=== PATIENT | female | born 1975 | race Caucasian/White ===

== ENCOUNTER 2023-09-24 14:27 | Emergency (ER) | payer MEDICAID, SELFPAY ==
[2023-09-24 15:18] VITALS: BP 143/89; PULSE 88; RESP 16; TEMP 36.7; O2SAT 98; BMI 33.3
[2023-09-24 17:00] VITALS: PULSE 72
[2023-09-24 17:47] LABS: Basophils % 0.6 %; Eosinophils # 0.2 10^3/uL (0.0-0.8); Eosinophils % 3.1 %; Hematocrit 37.9 % (36-47); Lymphocytes # 1.9 10^3/uL (0.8-4.8); Lymphocytes % 28.9 %; Mean Corpuscular HGB Conc 32.7 g/dL (30-55); Mean Corpuscular Hemoglobin 30.8 pg (27-33); Mean Platelet Volume 11.3 fL (7.4-10.4); Monocytes # 0.6 10^3/uL (0.2-0.9); Monocytes % 8.2 %; Neutrophils # 3.92 10^3/uL (1.8-7.7); Neutrophils % 58.9 %; Nucleated Red Blood Cells % 0 %; Platelet Count 257 10^3/cmm (157-399); Red Blood Count 4.03 10^6/uL (3.85-5.65); White Blood Count 6.67 10^3/uL (3.29-11.43)
--- NOTE | 2023-09-24 17:53 | W.ED.EXTPRO ---
HPI - Extremity Problem General: Chief complaint: Extremity Injury, Lower Stated complaint: reported pain and swelling in feet and legs Time Seen by Provider: 09/24/23 16:50 History of Present Illness: Aure is a 48-year-old female that presents to the emergency department with complaints of bilateral lower extremity swelling and redness. Onset of symptoms approximately 1 week ago and 1 week after starting a new job in which she stands for 8 to 10 hours a day. Patient reports there is bilateral lower extremity tenderness. Reports prior episodes of swelling but no redness like this episode. Patient denies any medical history and denies specific family or personal history of VTE. Associated symptoms: Deny chest pain, fever(s) or rash Review of Systems General: Reports: 10 or more systems reviewed and unremarkable except in HPI and below Const: Denies: fever(s), chills, change in appetite, change in weight, fatigue or malaise Eyes: Denies: change in vision, eye discomfort, eye discharge or eye redness ENMT: Denies: throat pain, enlarged tonsils, odynophagia, hoarseness, ear or mastoid pain, ear discharge, change in hearing, tinnitus, nasal discharge, nasal congestion, post nasal drip or sinus pain Card: Denies: chest pain, palpitations, irregular heart rhythm, edema, dyspnea on exertion, orthopnea or leg pain with exertion Resp: Denies: dyspnea, productive cough, non-productive cough, wheezing, stridor or chest congestion GI: Denies: abdominal pain, nausea, vomiting, dysphagia, diarrhea, constipation, bloating, GI cramping or hematochezia : Denies: flank pain, difficulty voiding, dysuria, urinary frequency, urinary urgency, urinary hesitancy, oliguria or hematuria Musc: Reports: extremity pain, extremity swelling, muscle cramps and other (Soft tissue redness but no warmth); Denies: neck pain, back pain, joint pain, joint swelling, joint redness, joint warmth or muscle weakness Skin/Breast: Denies: rash, pruritus, erythema, photosensitivity or new lesions Neuro: Denies: headache(s), numbness in extremities, weakness in extremities, sensory changes, lack of coordination, difficulty walking, frequent falls, dizziness, confusion, Slurred speech present, difficulty communicating thoughts, seizure-like activity or involuntary movements Endo: Denies: polyuria, polydipsia or tired all the time Elmo/Lymph: Denies: easy bruising or easy bleeding Physical Exam Const: COMMON NORMALS: no acute distress, patient oriented x3 and alert GENERAL APPEARANCE: cooperative ORIENTATION/CONSCIOUSNESS: Yes awake, Yes oriented to person, Yes oriented to place and Yes oriented to time HENMT: COMMON NORMALS: normocephalic and atraumatic HEAD & SCALP: normocephalic and atraumatic FACE & SINUS: normal facial exam MOUTH: Normal oral and palatal mucosa present THROAT: posterior oropharynx normal Eye: COMMON NORMALS: Equal, round and reactive pupils present, EOMs intact bilaterally, conjunctivae normal and no scleral icterus GENERAL EYE: appearance normal, both eyes and all related structures ALIGNMENT: Yes alignment normal PERIORBITAL: periorbital findings normal CONJUNCTIVA: Yes conjunctivae normal PUPIL: Yes Equal, round and reactive pupils present Neck/C-Spine: COMMON NORMALS: full ROM GENERAL: Yes normal visual inspection Lymph: LYMPHATIC: no lymphadenopathy noted Chest: COMMONS NORMALS: normal inspection of the chest Breast/axilla inspection: Yes no chest deformity, asymmetry, normal contours, no nodules, masses, tenderness Resp: COMMON NORMALS: normal respiratory effort, No retractions, No use of accessory muscles and clear to auscultation bilaterally EFFORT & INSPECTION: Yes able to speak in complete sentences and Yes symmetric chest movement AUSCULTATION: clear to auscultation bilaterally Cardio: COMMON NORMALS: regular rate, regular rhythm and Peripheral pulses 2+ throughout RATE: regular rate RHYTHM: regular rhythm PERIPHERAL PULSES: Peripheral pulses 2+ throughout GI: COMMON NORMALS: Normal to inspection, nondistended, normoactive bowel sounds present, Soft to palpation, non-tender and No hepatosplenomegaly present INSPECTION: Yes normal to inspection AUSCULTATION: Yes normoactive bowel sounds PALPATION: Yes Soft to palpation and Yes No hepatosplenomegaly present RECTAL EXAM: deferred Extremity: NARRATIVE EXTREMITY EXAM: Bilateral lower extremity: Skin is clean and dry Swelling below the level of the knee. There is erythema but no warmth See diagram Patient is able to flex and extend the hip and knee bilaterally Patient is able to dorsiflex plantarflex bilateral feet Patient is able to dorsiflex great toes Sensation intact to light touch at medial, lateral, dorsal, plantar surface of the foot as well as the first webspace Cap refill is less than 3 seconds and DP pulses palpable Patient has 3+ pitting edema GENERAL: Yes normal exam except as noted EXTREMITY IMAGE (FRONT): 1. Circumferential erythema without warmth. There is swelling below the level of the knee 2. Circumferential erythema without warmth. There is swelling below the level of the knee Neuro: COMMON NORMALS: patient oriented x3 SENSORIUM/ORIENTATION: Yes alert, Yes oriented to person, Yes oriented to place and Yes oriented to time CRANIAL NERVES: Yes CN normal except as noted Psych: COMMON NORMALS: mental status grossly normal, Normal thought process present, cooperative, activity/motor behavior normal, denies homicidal ideation and denies suicidal ideation THOUGHT PROCESS: Normal thought process present Skin: COMMON NORMALS: no rashes or lesions noted, no wounds and turgor normal GENERAL SKIN EXAM: no rashes or lesions noted and turgor normal Course Vital Signs: Vital signs: Vital Signs Temperature 98.0 F 09/24/23 15:18 Pulse Rate 72 09/24/23 17:00 Respiratory Rate 16 09/24/23 15:18 Blood Pressure 143/89 09/24/23 15:18 Pulse Oximetry 98 09/24/23 15:18 Oxygen Delivery Me thod Room Air 09/24/23 15:18 MDM - Extremity (Nontraumatic) Medical Decision Making Differential diagnosis includes cellulitis, VTE, venous Stasis Patient and I discussed low probability of VTE due to bilateral lower extremities being involved. There is no warmth to the soft tissue. Patient does state that this developed after starting a new job in which she stands on her feet for greater than 8 hours each day.Patient does have prior history of edema I did obtain a CBC, chemistry panel, CRP, ESR. There is no leukocytosis, thrombocytopenia She does have elevation in both ESR as well as CRP. I have given her a dose of Keflex here and advised her to wear support stockings. She needs to establish primary care and may benefit from vascular surgeon evaluation for venous insufficiency. Case management consult has been placed to assist in arranging follow-up. Patient is to return to the emergency department for new, concerning, worsening symptoms Lab Data 09/24/23 17:11 09/24/23 18:06 Laboratory Results WBC 6.67 10^3/uL (3.29-11.43) 09/24/23 17:11 RBC 4.03 10^6/uL (3.85-5.65) 09/24/23 17:11 Hgb 12.40 g/dL (11.27-16.99) 09/24/23 17:11 Hct 37.9 % (36-47) 09/24/23 17:11 MCV 94.0 fl (85-98) 09/24/23 17:11 MCH 30.8 pg (27-33) 09/24/23 17:11 MCHC 32.7 g/dL (30-55) 09/24/23 17:11 RDW 13.0 % (12.1-15.1) 09/24/23 17:11 Plt Count 257 10^3/cmm (157-399) 09/24/23 17:11 MPV 11.3 fL (7.4-10.4) H 09/24/23 17:11 Neut % (Auto) 58.9 % 09/24/23 17:11 Lymph % (Auto) 28.9 % 09/24/23 17:11 Hitchcock % (Auto) 8.2 % 09/24/23 17:11 Eos % (Auto) 3.1 % 09/24/23 17:11 Baso % (Auto) 0.6 % 09/24/23 17:11 Neut # (Auto) 3.92 10^3/uL (1.8-7.7) 09/24/23 17:11 Lymph # (Auto) 1.9 10^3/uL (0.8-4.8) 09/24/23 17:11 Hitchcock # (Auto) 0.6 10^3/uL (0.2-0.9) 09/24/23 17:11 Eos # (Auto) 0.2 10^3/uL (0.0-0.8) 09/24/23 17:11 Baso # (Auto) 0.0 10^3/uL (0.0-0.1) 09/24/23 17:11 Nucleated RBC % (auto) 0 % 09/24/23 17:11 Nucleated RBCs # 0.0 /100WBC 09/24/23 17:11 ESR 19 mm/hr (0-15) H 09/24/23 17:11 Sodium 137 mmol/L (136-145) 09/24/23 18:06 Potassium 4.3 mmol/L (3.5-5.1) 09/24/23 18:06 Chloride 100 mmol/L (98-107) 09/24/23 18:06 Carbon Dioxide 27 mmol/L (22-29) 09/24/23 18:06 Anion Gap 14.3 (5-19) 09/24/23 18:06 BUN 14 mg/dL (6-20) 09/24/23 18:06 Creatinine 0.5 mg/dL (0.5-0.9) 09/24/23 18:06 GFR Calculation 131.7 mL/min (90-130) H 09/24/23 18:06 Glucose 89 mg/dL (65-115) 09/24/23 18:06 Calculated Osmolality 284 mOsm/kg (285-295) L 09/24/23 18:06 Calcium 9.1 mg/dL (8.5-10.5) 09/24/23 18:06 Total Bilirubin 0.2 mg/dL (0.15-1.2) 09/24/23 18:06 AST 30 U/L (0-32) 09/24/23 18:06 ALT 39 U/L (0-33) H 09/24/23 18:06 Alkaline Phosphatase 47 U/L (35-105) 09/24/23 18:06 C-Reactive Protein 49.6 mg/L (0.0-4.9) H 09/24/23 18:06 NT-Pro-B Natriuret Pep 36 pg/mL (0-125) 09/24/23 18:06 Total Protein 6.9 g/dL (6.6-8.7) 09/24/23 18:06 Albumin 4.1 g/dL (3.5-5.2) 09/24/23 18:06 Globulin 2.8 g/dL (1.3-4.6) 09/24/23 18:06 No radiology studies performed this visit Discharge Plan Discharge Patient Disposition: Home Clinical Impression: Venous insufficiency, Edema, Cellulitis Condition: Stable Prescriptions: New cephalexin 500 mg capsule 500 mg PO Q6H 7 Days Qty: 28 0RF Discharge Orders: Discharge ED (Routine); Ordered 09/24/23 Ordered By: Moose Almaguer McTeer Discharge Diet: Advance as tolerated Discharge Activity: Resume usual activity Patient Instructions: Cellulitis (ED), Pain Management, Venous Insufficiency Activity Restrictions/Additional Instructions: Please take your antibiotics as prescribed Please wear compression stockings. This can be purchased at [facility] [employer] or any pharmacy. Please return to the emergency department for new, concerning, worsening symptoms Coding Level of Care Code ED X Ray Consultant for Allan Huertas
[2023-09-24 18:43] LABS: Alanine Aminotransferase 39 U/L (0-33); Albumin Level 4.1 g/dL (3.5-5.2); Alkaline Phosphatase 47 U/L (35-105); Anion Gap 14.3 (5-19); Aspartate Amino Transferase 30 U/L (0-32); Blood Urea Nitrogen 14 mg/dL (6-20); C Reactive Protein 49.6 mg/L (0.0-4.9); Calcium 9.1 mg/dL (8.5-10.5); Carbon Dioxide 27 mmol/L (22-29); Chloride 100 mmol/L (98-107); Globulin 2.8 g/dL (1.3-4.6); Glomerular Filtration Rate 131.7 mL/min (90-130); Glucose 89 mg/dL (65-115); NT Pro B Type Natriuretic Pept 36 pg/mL (0-125); Osmolality Calculated 284 mOsm/kg (285-295); Potassium 4.3 mmol/L (3.5-5.1); Sodium 137 mmol/L (136-145); Total Bilirubin 0.2 mg/dL (0.15-1.2); Total Protein 6.9 g/dL (6.6-8.7)
[2023-09-24 18:55] LABS: Erythrocyte Sedimentation Rate 19 mm/hr (0-15)
--- NOTE | 2023-09-24 19:35 | PC.NURSE ---
took report from Lauren RAMOS, took over pt care at 191
--- NOTE | 2023-09-26 11:38 | DCPLANNER ---
I called the number on the patients chart for this patient to see where she would like her primary care to be set up at. I left a voicemail on 09/26/23 at [phone] for patient to contact us back.
--- NOTE | 2023-10-03 11:13 | DCPLANNER ---
I called patient again on 10/03/23 at 11:06 am to see where she would like a PCP established at. Patient does not have a preference on a PCP. - I called [facility] phone number [phone] at 1109 am. The medical receptionist biller said I can send the chart to them, but the patient will have to call them to set up an appointment. Fax number for this clinic is [phone]. I attempted to call the patient again at 11:11 to let her know she needs to call this clinic to set up her own appointment. I had to leave a voicemail for this patient.
== END 2023-09-24 19:36 | disposition home or self-care (01) ==
PROVIDERS: Emergency Medicine; Emergency Provider Nurse Practitioner
DX: I87.2 Venous insufficiency (chronic) (peripheral) (principal); R60.0 Localized edema; L03.116 Cellulitis of left lower limb; L03.115 Cellulitis of right lower limb
CPT/HCPCS: 36415; 80053; 83880; 85025; 85651; 86140; 99283

== ENCOUNTER 2025-03-30 23:38 | Emergency (ER) | payer MEDICAID, SELFPAY ==
[2025-03-30 23:45] VITALS: BP 133/83; PULSE 86; RESP 16; TEMP 36.6; O2SAT 99; BMI 31.6
== END 2025-03-31 02:36 | disposition left against medical advice (07) ==
PROVIDERS: Emergency Provider Family Medicine
DX: Z53.21 Procedure and treatment not carried out due to patient leaving prior to being seen by health care provider (principal)

== ENCOUNTER 2025-05-26 00:03 | Emergency (ER) | payer MEDICAID, SELFPAY ==
--- OUTSIDE RECORDS SUMMARY | 2023-11-30 06:10 | XMS_ITS ---
Author Organization [facility] Address [address] [place] [address] Care Team Providers Care Instructional Materials Director Name Role Phone Luis Dwyer APRN Unavailable [phone] Allergies Allergen (clinical drug ingredient) Drug/Non Drug Allergy documented on EMR Reaction Allergy Type Onset Date Status meperidine Demerol hives Drug Allergy Active REASON FOR VISIT Back pain ssaha, DOI: a week ago Medications Medication SIG (Take, Route, Frequency, Duration) Notes Start Date End Date Status Ketorolac Tromethamine 10 mg 1 tab(s) orally 4 times a day for 5 days 11/30/2023 Active ibuprofen 800 mg 1 tab(s) orally ever y 8 hours 10/16/2023 Not-Taking Lasix 20 mg 1 tab(s) orally twic e daily 10/16/2023 Not-Taking lisinopril 10 mg 1 tab(s) orally once a day Unknown Cyclobenzaprine Hydrochloride 10 mg 1 tab(s) orally 3 times a day as needed 11/30/2023 Active ibuprofen 800 mg 1 tab(s) orally ever y 8 hours as needed for pain for 5 days 09/15/2023 Not-Taking cyclobenzaprine 10 mg 1 tab(s) orally 3 times a day for 5 days 09/10/2023 Not-Taking cyclobenzaprine 10 mg 1 tab(s) orally 3 times a day for 5 days 09/15/2023 Not-Taking Vital Signs Temperature 97.3 degrees Fahrenheit 11/30/19 24 Blood pressure systolic 152 mm Hg 11/30/19 24 Blood pressure diastolic 82 mm Hg 024 Height 65 in 11/30/2023 Weight 219.4 lbs 11/30/2023 BMI 36.51 kg/m2 11/30/2023 CAREY méndez Encounters Encounter Location Date Provider Diagnosis [facility] [address] [address] [place] [address] 11/30/2023 Luis Reymundo Acute bilateral low back pain without sciatica M54.50 Assessments Encounter Date Diagnosis (ICD Code) Assessment Notes Treatment Notes Treatment Clinical Notes Section Notes 11/30/2023 Acute bilateral low back pain without sciatica (ICD-10 - M54.50) 11/30/2023 Other POC: Bao Plan Of Treatment Medication Medication Name Sig Start Date Stop Date Notes Ketorolac Tromethamine 10 mg 1 tab(s) or ally 4 times a day for 5 days 11/30/2023 Cyclobenzaprine Hydrochlorid e 10 mg 1 tab(s) orally 3 times a day as needed 11/30/2023 Treatment Notes Assessment Notes Other POC: Bao Next Appt Details Follow Up: Next Available, Victor M nairon: Wellness Medications Administered Medication Instructions Date of Administration Dosage Notes Celestone/betamethasone acet ate (use this one)-3mg 11/30/2023 12 mg Progress Notes * Aure VALLADARES DDOB:1975 (50 yo F)Acc No.[id number]:11/30/2023 Progress Note Patient: Aure JIMÉNEZ D Provider: Svetlana Dwyer APRN :1975 A ge:48 Y S ex:Female Date:11/30/2023 Address:[address] [place] [address], [address], [place], [id number] Subjective: * Chief Complaints: * 1 . Back pain lobby. 2. DOI: a week ago. * HPI: Rosalino DAVIS BACK: 48 year old female presents with c/o low back pain. c /o radiation of pain t o both buttocks. Denies : fall. Denies : direct trauma. Denies : Numbness or tingling b urning in toes. Pt states that she hurt her back at work by lifting something heavy. Denies that she heard a pop when it happened. States that hurts to stand any amount of time. States that it hurts and may down low. States that she stands for 8 hours for her job. States that she saw a young doctor here and missed an appointment for her swollen feet. States that her feet aren't any better. Treated with ibuprofen, Tylenol, Aleve with no relief. Pt. states she is not sure of anything that happened at work that caused this. 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 * Surgical History: g allbladder removal 2006, c section 2002, hysterectomy 2002. * Hospitalization/Major Diagno stic Procedure: Lex enies Past Hospitalization. * Family History: M other: diagnosed with Hypertension. * Social History: A lcohol Use: no . T obacco Use Patient is a C urrent Smoker 1/2 PPD since age 30 Patient asked on 0 11/30/2023 H x of Tobacco Use: yes. C affeine Use How many servings of caffeine do you drink daily? 1 to 2 servings * Medications: N ot-Taking Lasix 20 mg tablet 1 tab(s) orally twice daily , Not-Taking ibuprofen 800 mg tablet 1 tab(s) orally every 8 hours , Not-Taking cyclobenzaprine 10 mg tablet 1 tab(s) orally 3 times a day , Not-Taking ibuprofen 800 mg tablet 1 tab(s) orally every 8 hours as needed for pain , Not-Taking cyclobenzaprine 10 mg tablet 1 tab(s) orally 3 times a day , Unknown lisinopril 10 mg tablet 1 tab(s) orally once a day , Medication List reviewed and reconciled with the patient * Allergies: D emerol: hives - Allergy. Objective: * Vitals: W t:219.4, Ht: 65, BMI:36.51, Temp:97.3, HR:86, BP:152/82, Pulse Ox:98%. 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 * Examination: l ower back: Inspection: n ormal curvature of spine, no erythema, no ecchymosis. Palpation: t enderness to right and left side of upper L spine.. Straight leg raising test: n egative bilaterally. Motor system: n ormal bilaterally. Sensory exam* n ormal bilateral LE. Reflexes* b ilaterally symmetrical. Gait a ltered due to pain. Assessment: * Assessment: 1. A cute bilateral low back pain without sciatica - M54.50 (Primary) Plan: * Treatment: 2. O thers Notes: POC: Bao * Therapeutic Injections: Celestone/betamethasone acetate (use this one)-3mg : 12 mg (Route: Intramuscular) given by Saskia Dean on right gluteus (Acute bilateral low back pain without sciatica) * Procedure Codes: J 0702 INJ BETAMETHSN ACTAT&SOD PHOSPH-3MG, Units: 4.00 , 92393 Admin of Injection (IM/SC) * Follow Up: N ext Available (Reason: Wellness) * Billing Information: * Visit Code: 16782 Office Visit, Est Pt., Level 3. * Procedure Codes: J0702 INJ BETAMETHSN ACTAT&SOD PHOSPH-3MG. Units: 4.00. 65024 Admin of Injection (IM/SC). * Electronic signature of Tamra Dwyer APRN, APRN on 05/26/2025 at 12:15 AM CDT Sign off status: Pending * Provider: Svetlana Dwyer APRN Date: 0 11/30/2023 Generated for Parag ferreira/Remi/Chula on: 0 05/26/2025 12:15 AM CDT History and Physical Notes * HPI (History of Present Illness) Category Sub-Category Detail Notes Category Not es LOWER BACK direct trauma Pt states that she hurt her back at work by lifting something heavy. Denies that she heard a pop when it happened. States that hurts to stand any amount of time. States that it hurts and may down low. States that she stands for 8 hours for her job. States that she saw a young doctor here and missed an appointment for her swollen feet. States that her feet aren't any better. Treated with ibuprofen, Tylenol, Aleve with no relief. Pt. states she is not sure of anything that happened at work that caused this. fall Numbness or tingling burning in toes low back pain radiation of pain to both buttocks Examination Category Sub-Category Detail Notes Category Not es lower back Straight leg raising test: negative bilat erally Motor system: normal bilaterally Sensory exam* normal bilateral LE Reflexes* bilaterally symmetri johnny Gait altered due to pain Inspection: normal curvature of spine, no erythema, no ecchymosis Palpation: tenderness to right and left side of upper L spine.
--- OUTSIDE RECORDS SUMMARY | 2023-12-06 05:40 | XMS_ITS ---
Author Organization [facility] Address [address] [place] [address] Care Team Providers Care Cafe Assistant Name Role Phone Isabel Estevan David [phone] REASON FOR VISIT Est Care, SELF PAY Medications Medication SIG (Take, Route, Frequency, Duration) Notes Start Date End Date Status cyclobenzaprine 10 mg 1 tab(s) orally 3 times a day for 5 days 09/15/2023 Not-Taking cyclobenzaprine 10 mg 1 tab(s) orally 3 times a day for 5 days 09/10/2023 Not-Taking ibuprofen 800 mg 1 tab(s) orally ever y 8 hours as needed for pain for 5 days 09/15/2023 Not-Taking Lasix 20 mg 1 tab(s) orally twic e daily 10/16/2023 Not-Taking ibuprofen 800 mg 1 tab(s) orally ever y 8 hours 10/16/2023 Not-Taking lisinopril 10 mg 1 tab(s) orally once a day Unknown Cyclobenzaprine Hydrochloride 10 mg 1 tab(s) orally 3 times a day as needed 11/30/2023 Active Ketorolac Tromethamine 10 mg 1 tab(s) orally 4 times a day for 5 days 11/30/2023 Active Encounters Encounter Location Date Provider Diagnosis [facility] [address] [facility] [facility] [address] [place] [address] 12/06/2023 Estevan Hall Plan Of Treatment No Information Progress Notes * Aure VALLADARES DDOB:1975 (50 yo F)Acc No.[id number]:12/06/2023 Patient: Aure JIMÉNEZ Provider: Rodolfo Hall APRN :1975 A ge:48 Y S ex:Female Date:12/06/2023 Address:[address] [place] [address], [address], [id number] Subjective: * Chief Complaints: * 1 . Est Care, SELF PAY. * Medical History: * Medications: T aking Cyclobenzaprine Hydrochloride 10 mg tablet 1 tab(s) orally 3 times a day as needed , Taking Ketorolac Tromethamine 10 mg tablet 1 tab(s) orally 4 times a day , Not-Taking Lasix 20 mg tablet 1 tab(s) orally [...] tablet 1 tab(s) orally once a day Objective: * Vitals: Assessment: Plan: * Treatment: * Billing Information: * Visit Code: * Procedure Codes: * Electronic signature of Rob Hall APRN on 05/26/2025 at 12:15 AM CDT Sign off status: Pending * Provider: Rodolfo Hall APRN Date: 12/06/2023 Generated for Parag ferreira/Remi/Chula on: 0 05/26/2025 12:15 AM CDT
[2025-05-26 00:09] VITALS: BP 112/65; PULSE 80; RESP 18; TEMP 36.7; O2SAT 96; BMI 31.6
--- OUTSIDE RECORDS SUMMARY | 2025-05-26 00:15 | XMS_ITS | Patient Health Record ---
Author Organization [facility] Address [address] [place], [place] [address] Care Team Providers Care Veneer Taping Machine Offbearer Name Role Phone Pedro MURRELL, Ton Primary Care Provider Unavail able Mel MURRELL, Danielito Unavailable [phone] Reason For Referral No Information Plan Of Treatment No Information Insurance Providers Payer Name Payer Address Payer Phone Subscriber Number Group Number Insured Name Patient Relationship to Insured Coverage Start Date Coverage End Date BCBS [address] [place] [address] [id number] Aure Lama Self - patient is the insured [employer] [address] [place] [phone] [id number] Aure Lama Self - patient is the insured
--- OUTSIDE RECORDS SUMMARY | 2025-05-26 00:15 | XMS_ITS | Encounter Summary ---
Author Organization [facility] [employer] Address [address] [place] [address] Care Team Providers Care Manager Branch Name Role Phone Unavailable Primary Care Provider Unavailabl e Encounter Details Date Type Department Care Team ([facility] st Contact Info) Description 05/04/2024 Outside Records [facility] [address] [facility] [place] [address] Interface, Provider Social History Tobacco Use Types Packs/Day Years Used Date Smoking Tobacco: Never Assessed Comments Unknown Sex and Gender Information Value Date Recorded Sex Assigned at Not on file Legal Sex Female 1:41 PM CDT Gender Identity Not on file Sexual Orientation Not on file documented as of this encounter Plan of Treatment Not on file documented as of this encounter Visit Diagnoses Not on filedocumented in this encounter
--- OUTSIDE RECORDS SUMMARY | 2025-05-26 00:15 | XMS_ITS | Clinical Summary ---
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 Up Name Role Phone Unavailable Primary Care Provider Unavailabl e Social History Tobacco Use Types Packs/Day Years Used Date Smoking Tobacco: Never Assessed Comments Unknown Sex and Gender Information Value Date Recorded Sex Assigned at Not on file Legal Sex Female 1:41 PM CDT Gender Identity Not on file Sexual Orientation Not on file Plan of Treatment Health Maintenance Due Date Last Done Comments COLONOSCOPY 1975 CT Colonography 1975 Colorectal Cancer Screening 1975 FIT DNA 1975 FIT 1975 Hepatitis C Screening 1975 Mammogram 1975 SIGMOIDOSCOPY 1975 Anxiety Screening 1983 HIV Screening 1990 Depression Screening 1993 Hepatitis B Vaccine (1 of 3 - 19+ 3-dose series) 1994 TDAP/DTaP/TD Vaccines (1 - Tdap) 1994 Pap Smear 1996 Cervical Cancer Screening (30-65) 2005 HPV/Cotest 2005 Lipid Panel 2015 COVID-19 Vaccine (1 - 2023-2 5 season) 2024 Pneumococcal Vaccine 50+ (1 of 1 - PCV) 2025 Zoster Vaccine (1 of 2) 2025 Influenza Series (#1) 2025 Meningococcal B Vaccine Aged Out No l onger eligible based on patient's age to complete this topic Insurance [address] [place] [id number] [place] MEDICAID-NO REFERRAL REQ
--- OUTSIDE RECORDS SUMMARY | 2025-05-26 00:15 | XMS_ITS | Patient Health Record ---
Author Organization [facility] Address [address] [address] [place] [address] Support Name Relationship Address Phone Lee Pastor Emergency Contact [address] [place] [address] Aure Valladares Guarantor Unknown [phone] Allergies Allergen (clinical drug ingredient) Drug/Non Drug Allergy documented on EMR Reaction Allergy Type Onset Date Status meperidine Demerol hives Drug Allergy Active Reason For Referral No Information Medications Medication SIG (Take, Route, Frequency, Duration) Notes Start Date End Date Status cyclobenzaprine 10 mg 1 tab(s) orally 3 times a day for 5 days 09/15/2023 Not-Taking lisinopril 10 mg 1 tab(s) orally once a day Unknown cyclobenzaprine 10 mg 1 tab(s) orally 3 times a day for 5 days 09/10/2023 Not-Taking ibuprofen 800 mg 1 tab(s) orally ever y 8 hours as needed for pain for 5 days 09/15/2023 Not-Taking Cyclobenzaprine Hydrochloride 10 mg 1 tab(s) orally 3 times a day as needed 11/30/2023 Active Ketorolac Tromethamine 10 mg 1 tab(s) orally 4 times a day for 5 days 11/30/2023 Active Lasix 20 mg 1 tab(s) orally twic e daily 10/16/2023 Not-Taking ibuprofen 800 mg 1 tab(s) orally ever y 8 hours 10/16/2023 Not-Taking Problems Problem Type SNOMED Code ICD Code Onset Dates Problem Status W/U Status Risk Notes Problem [id number] Lumbago with sciatica, right side (M54.41) Active confirmed Problem 803067217 Lumbago with sciatica, left side (M54.42) Active confirmed Problem 84020743 Primary hypertension (I10) Active confirmed Plan Of Treatment No Information Medications Administered Medication Instructions Date of Administration Dosage Notes Toradol 15mg/unit (use this one) 09/10/2023 60 mg Celestone/betamethasone acet ate (use this one)-3mg 11/30/2023 12 mg Medical (General) History Surgical History Surgery Date(Month/Year) hysterectomy 2002 c section 2002 gallbladder removal 2006
--- OUTSIDE RECORDS SUMMARY | 2025-05-26 00:15 | XMS_ITS | Encounter Summary ---
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
--- NOTE | 2025-05-26 00:17 | XRR_ITS ---
PROCEDURE INFORMATION: Exam: XR Right Foot Exam date and time: 05/26/2025 1:00 AM Age: 50 years old Clinical indication: Right; C/O RT foot pain. ; Additional info: Right foot pain TECHNIQUE: Imaging protocol: Radiologic exam of the right foot. Views: 3 or more views. COMPARISON: No relevant prior studies available. FINDINGS: Bones/joints: There is degenerative osteoarthritis at the 1st MTP joint. There is a chronic deformity associated with the 5th metatarsal head. There is There is no evidence of acute fracture. There is no evidence of joint disruption. Soft tissues: Normal. XR/XR foot RT min 3V* [id number] IMPRESSION: 1. No fracture or evidence of joint disruption is noted. 2. Degenerative osteoarthritis primarily at the 1st MTP joint is noted.
--- NOTE | 2025-05-26 01:34 | W.ED.EXTPRO ---
HPI - Extremity Problem General: Chief complaint: Extremity Injury, Lower Stated complaint: R top of foot feels broken Time Seen by Provider: 05/26/25 01:20 History of Present Illness: 50-year-old patient jumped out of a high for her for truck earlier. She landed in an equinus position. She is complaining of intense midfoot pain with burning type pain across the top of her foot. Related Data Home Medications ?Medication ?Instructions ?Recorded ?Confirmed buprenorphine 8 mg-naloxone 2 mg 2 film buccal DAILY 02/20/25 04/01/25 sublingual film (Suboxone) aripiprazole 2 mg tablet (Abilify) 2 mg PO DAILY 04/01/25 04/01/25 Previous Rx's ?Medication ?Instructions ?Recorded ondansetron HCl 8 mg tablet 8 mg PO Q12H #60 tabs 02/20/25 diazepam 10 mg tablet 10 mg PO ONCE anxiety #1 tab 04/01/25 fluticasone propionate 50 1 spray intranasal DAILY #16 grams 04/01/25 mcg/actuation nasal spray,suspension cxbsjlvjfs-yvdmewzrizgvr-obknlxbk 1 tab PO Q6H PRN headache 7 days 04/15/25 50 mg-325 mg-40 mg tablet #7 tabs venlafaxine 150 mg 150 mg PO DAILY #30 caps 04/23/25 capsule,extended release 24 hr (Effexor XR) lisinopril 10 mg tablet 10 mg PO DAILY #90 tabs 04/24/25 propranolol 20 mg tablet 20 mg PO BID #60 tabs 04/24/25 loratadine-pseudoephedrine ER 10 See Rx Instructions .Route 04/29/25 mg-240 mg tablet,extended .COMPLEX #30 tabs [id number] (Allergy Relief D-24hr) ketorolac 10 mg tablet 10 mg PO TID PRN pain #10 tabs 05/26/25 Allergies Allergy/AdvReac Type Severity Reaction Status Date / Time meperidine (From Demerol) Allergy ALGY-Difficulty Verified 04/16/25 10:12 Breathing prochlorperazine (From Allergy ALGY-Hives Verified 04/01/25 07:15 Compazine) [facility] ED PFSH: Medical History (Updated 05/26/25 @ 01:36 by Sky Salcedo DO) Migraine, chronic, without aura on Fioricet for years Hypertension Hx of substance abuse opioids; last use 2010; goes to [facility] for Suboxone Bilateral primary osteoarthritis of knee reports had injections; saw [facility], had MRI was told needed knee replacement Family history of breast cancer in first degree relative Nicotine dependence, cigarettes, with other nicotine-induced disorders Pituitary tumor 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20, treated w/ [facility]; went away; reports symptoms returned Depression with anxiety Post traumatic stress disorder (PTSD) Bipolar 1 disorder Surgical History History of cholecystectomy History of partial hysterectomy ovaries remaining; done for endometriosis and precancerous cells of cervix Hx of section X 2 History of carpal tunnel surgery of right wrist Family History Father Pancreatic cancer Mother Parkinson disease Heart disease Sister Breast cancer Social History Smoking and tobacco/nicotine status: current every day tobacco/nicotine user Second hand smoke exposure: No Alcohol intake: never Substance/Drug Use: former Date of last use: 2010 Former substance use details: opiates; goes to [facility] for [facility] Household members: other Details: living with mother currently Marital status: Legally Number of children: 3 Highest education level completed: Some College, No Degree Current occupational status: unemployed 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 Physical Exam Const: COMMON NORMALS: no acute distress GENERAL APPEARANCE: cooperative; not ill appearing and not frail appearing HENMT: COMMON NORMALS: normocephalic, atraumatic and Normal external nose present HEAD & SCALP: normocephalic and atraumatic FACE & SINUS: normal facial exam and face symmetric NOSE: Normal external nose present Eye: COMMON NORMALS: Equal, round and reactive pupils present and EOMs intact bilaterally PUPIL: Yes Equal, round and reactive pupils present Neck/C-Spine: GENERAL: Yes trachea midline Chest: CHEST: Yes Symmetrical chest wall rise Resp: COMMON NORMALS: normal respiratory effort, No retractions and No use of accessory muscles Cardio: COMMON NORMALS: regular rate and regular rhythm RATE: regular rate RHYTHM: regular rhythm Extremity: NARRATIVE EXTREMITY EXAM: Exam of the left lower extremity reveals mild soft tissue swelling with some redness and significant tenderness over the dorsum of the midfoot. There is no deformity. There is no ankle tenderness. Sensation is intact distally. Capillary refill is normal distally. Neuro: KARY COMA SCALE: document GCS findings Kary coma scale eye opening: Spontaneous Kary coma scale verbal response: Orientated Kary coma scale motor response: Obey commands Kary coma scale total score: 15 SENSORY EXAM: Yes extremities (intact) Course Vital Signs: Vital signs: Vital Signs Temperature 98.0 F 05/26/25 00:09 Pulse Rate 80 05/26/25 00:09 Respiratory Rate 18 05/26/25 00:09 Blood Pressure 112/65 05/26/25 00:09 Pulse Oximetry 96 05/26/25 00:09 Oxygen Delivery Me thod Room Air 05/26/25 00:09 MDM - Extremity (Nontraumatic) Medical Decision Making This patient takes Suboxone. She is requesting Toradol. She will be given an injection. She is given Ativan for neuropathic type pain. X-ray is read as negative for fracture. Mild concern for ligamentous Lisfranc type injury. She will be placed in a fracture boot, made nonweightbearing, given crutches, and asked to follow-up with foot and ankle surgery. Lab Data Radiology Impressions Foot X-Ray 05/26/25 00:17 IMPRESSION: 1. No fracture or evidence of joint disruption is noted. 2. Degenerative osteoarthritis primarily at the 1st MTP joint is noted. All radiology interpretation(s) finalized by discharge Discharge Plan Discharge Patient Disposition: Home Clinical Impression: Other sprain of left foot, initial encounter Condition: Stable Prescriptions: New ketorolac 10 mg tablet 10 mg PO TID PRN (Reason: pain) Qty: 10 0RF No Action buprenorphine-naloxone [Suboxone] 8-2 mg film 2 film buccal DAILY Rx Instructions: place 1 film on inside of (each) cheek ondansetron HCl 8 mg tablet 8 mg PO Q12H Qty: 60 1RF aripiprazole [Abilify] 2 mg tablet 2 mg PO DAILY diazepam 10 mg tablet 10 mg PO ONCE Qty: 1 0RF fluticasone propionate 50 mcg/actuation spray,suspension 1 spray intranasal DAILY Qty: 16 5RF Rx Instructions: administer into each nostril olpbtqokib-wvoaqiulxxxfi-xwvj 50-325-40 mg tablet 1 tab PO Q6H PRN (Reason: headache) 7 Days Qty: 7 0RF venlafaxine [Effexor XR] 150 mg capsule,extended release 24hr 150 mg PO DAILY Qty: 30 1RF propranolol 20 mg tablet 20 mg PO BID Qty: 60 1RF lisinopril 10 mg tablet 10 mg PO DAILY Qty: 90 0RF Allergy Relief D-24hr 10-240 mg tablet extended release 24 hr See Rx Instructions .ROUTE .COMPLEX Qty: 30 1RF Dose Instruction: TAKE 1 TABLET BY MOUTH EVERY DAY Rx Instructions: TAKE 1 TABLET BY MOUTH EVERY DAY Discharge Orders: Discharge ED (Routine); Ordered 05/26/25 Ordered By: Sky Salcedo Referrals: Jovanni Radford DPM [Physician, Podiatry] - 4-7 days Xochilt Hudson MD [Primary Care Provider, Family Practice] - 4-7 days Patient Instructions: Foot Sprain (ED), Opioid Safety, Pain Management, Patient Portal & Brody Instructions Activity Restrictions/Additional Instructions: Wear your fracture boot with all activities until seen by foot and ankle surgery. Use crutches for weightbearing until seen. Pain medication as needed. You may remove the boot when you are sitting or lying, use ice for pain and swelling. Call foot and ankle surgery clinic in the morning for a follow-up appointment. Print Language: Ethiopian Coding Level of Care Code ED Check Out Clerk for Allan Huertas
== END 2025-05-26 01:59 | disposition home or self-care (01) ==
PROVIDERS: Emergency Provider Emergency Medicine; PCP Family Medicine
DX: S93.601A Unspecified sprain of right foot, initial encounter (principal); X58.XXXA Exposure to other specified factors, initial encounter
CPT/HCPCS: 73630; 96372; 99284; E0114; J1885; J9999

== ENCOUNTER 2025-05-29 19:30 | Emergency (ER) | payer MEDICAID, SELFPAY ==
--- OUTSIDE RECORDS SUMMARY | 2023-11-30 06:10 | XMS_ITS ---
Author Organization [facility] Address [address] [place] [address] Care Team Providers Care Criminology Professor Name Role Phone Luis Dwyer APRN Unavailable [phone] Allergies Allergen (clinical drug ingredient) Drug/Non Drug Allergy documented on EMR Reaction Allergy Type Onset Date Status meperidine Demerol hives Drug Allergy Active REASON FOR VISIT Back pain sasha, DOI: a week ago Medications Medication SIG [...] méndez Encounters Encounter Location Date Provider Diagnosis [facility] [address] [address] [place] [address] 11/30/2023 Luis Reymundo Acute bilateral low back [...] * Aure VALLADARES DDOB:1975 (50 yo F)Acc No.[id number]:11/30/2023 Progress Note Patient: Aure JIMÉNEZ D Provider: Svetlana Dwyer APRN :1975 A ge:48 Y S ex:Female Date:11/30/2023 Address:[address] [place] [address], [address], [place], [id number] Subjective: * Chief Complaints: * 1 . 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 * Procedure Codes: J0702 INJ BETAMETHSN ACTAT&SOD PHOSPH-3MG. Units: 4.00. 11721 Admin of Injection (IM/SC). * Electronic signature of Tamra Dwyer APRN, APRN on 05/31/2025 at 03:11 AM CDT Sign off status: Pending * Provider: Svetlana Dwyer APRN Date: 0 11/30/2023 Generated for Parag ferreira/Remi/Chula on: 0 05/31/2025 03:11 AM CDT History and Physical Notes * [...]
--- OUTSIDE RECORDS SUMMARY | 2023-12-06 05:40 | XMS_ITS ---
Author Organization [facility] Address [address] [place] [address] Care Team Providers Care Project Management Manager Name Role Phone Isabel Estevan David [phone] REASON FOR VISIT Est Care, SELF PAY [...] Active Encounters Encounter Location Date Provider Diagnosis [facility] [address] [place] [address] 12/06/2023 Estevan Hall Plan Of Treatment No Information Progress Notes * Aure VALLADARES DDOB:1975 (50 yo F)Acc No.[id number]:12/06/2023 Patient: Aure JIMÉNEZ Provider: Rodolfo Hall APRN :1975 A ge:48 Y S ex:Female Date:12/06/2023 Address:[address] [place] [address], [id number] Subjective: * Chief Complaints: * 1 . [...] Electronic signature of Rob Hall APRN on 05/31/2025 at 03:11 AM CDT Sign off status: Pending * Provider: Rodolfo Hall APRN Date: 12/06/2023 Generated for Parag ferreira/Remi/Chula on: 05/31/2025 03:11 AM CDT
[2025-05-29 19:33] VITALS: BP 131/76; PULSE 69; RESP 16; TEMP 36.4; O2SAT 99
--- NOTE | 2025-05-29 19:36 | XRR_ITS ---
PROCEDURE INFORMATION: Exam: XR Chest Exam date and time: 05/29/2025 7:41 PM Age: 50 years old Clinical indication: Other: Weakness TECHNIQUE: Imaging protocol: Radiologic exam of the chest. Views: 1 view. COMPARISON: No relevant prior studies available. FINDINGS: Lungs: No infiltrate or consolidation. Minimal linear opacity right lateral lung base could reflect small amount of atelectasis or small scar. Pleural spaces: Unremarkable. No pleural effusion. No pneumothorax. Heart/Mediastinum: Unremarkable. No cardiomegaly. Bones/joints: Visualized osseous structures show no acute abnormality. XR/XR chest 1V portable [id number] IMPRESSION: 1. Small focus of linear scar versus linear atelectasis right lateral lung base. 2. No acute findings.
--- NOTE | 2025-05-29 19:43 | W.ED.WEAKNES ---
HPI - Weakness General: Chief complaint: Weakness Stated complaint: WEAKNESS Time Seen by Provider: 05/29/25 19:33 History of Present Illness: 50-year-old female with a history of hypertension, migraines, depression, anxiety, PTSD and bipolar disorder who presents to the emergency room by ambulance with generalized weakness. She has had some nausea but no vomiting. This been going on for about 3 days. No abdominal pain. No chest pain. No altered mental status. No focal motor deficits. No known fevers. Related Data Home Medications ?Medication ?Instructions ?Recorded ?Confirmed buprenorphine 8 mg-naloxone 2 mg 2 film buccal DAILY 02/20/25 04/01/25 sublingual film (Suboxone) aripiprazole 2 mg tablet (Abilify) 2 mg PO DAILY 04/01/25 04/01/25 Previous Rx's ?Medication ?Instructions ?Recorded ondansetron HCl 8 mg tablet 8 mg PO Q12H #60 tabs 02/20/25 diazepam 10 mg tablet 10 mg PO ONCE anxiety #1 tab 04/01/25 fluticasone propionate 50 1 spray intranasal DAILY #16 grams 04/01/25 mcg/actuation nasal spray,suspension qqejvspxou-medmmekrpvyir-hfrimisr 1 tab PO Q6H PRN headache 7 days 04/15/25 50 mg-325 mg-40 mg tablet #7 tabs venlafaxine 150 mg 150 mg PO DAILY #30 caps 04/23/25 capsule,extended release 24 hr (Effexor XR) lisinopril 10 mg tablet 10 mg PO DAILY #90 tabs 04/24/25 propranolol 20 mg tablet 20 mg PO BID #60 tabs 04/24/25 loratadine-pseudoephedrine ER 10 See Rx Instructions .Route 04/29/25 mg-240 mg tablet,extended .COMPLEX #30 tabs [id number] (Allergy Relief D-24hr) ketorolac 10 mg tablet 10 mg PO TID PRN pain #10 tabs 05/26/25 cephalexin 500 mg tablet 500 mg PO TID 7 days #21 tabs 05/29/25 ondansetron 4 mg disintegrating 4 mg PO Q8H PRN nausea and 05/29/25 tablet vomiting #10 tabs Allergies Allergy/AdvReac Type Severity Reaction Status Date / Time meperidine (From Demerol) Allergy ALGY-Difficulty Verified 04/16/25 10:12 Breathing prochlorperazine (From Allergy ALGY-Hives Verified 04/01/25 07:15 Compazine) Review of Systems Narrative: Constitutional symptoms: Negative except as documented in HPI. Skin symptoms: Negative except as documented in HPI. Eye symptoms: Negative except as documented in HPI. ENMT symptoms: Negative except as documented in HPI. Respiratory symptoms: Negative except as documented in HPI. Cardiovascular symptoms: Negative except as documented in HPI. Gastrointestinal symptoms: Negative except as documented in HPI. Genitourinary symptoms: Negative except as documented in HPI. Musculoskeletal symptoms: Negative except as documented in HPI. Neurologic symptoms: Negative except as documented in HPI. Psychiatric symptoms: Negative except as documented in HPI. Endocrine symptoms: Negative except as documented in HPI. 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20, treated w/ parlodel; went away; reports symptoms returned Depression with anxiety Post traumatic stress disorder (PTSD) Bipolar 1 disorder Surgical History History of cholecystectomy History of partial hysterectomy ovaries remaining; done for endometriosis and precancerous cells of cervix Hx of section X 2 History of carpal tunnel surgery of right wrist Family History Father Pancreatic cancer Mother Parkinson disease Heart disease Sister Breast cancer Social History Smoking and tobacco/nicotine status: current every day tobacco/nicotine user Second hand smoke exposure: No Alcohol intake: never Substance/Drug Use: former Date of last use: 2010 Former substance use details: opiates; goes to [facility] for suboxone Household members: other Details: living with mother currently Marital status: Legally Number of children: 3 Highest education level completed: Some College, No Degree Current occupational status: unemployed 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 Skin: Warm, dry. Head: Normocephalic, atraumatic. Neck: Supple, trachea midline. Eye: Extraocular movements are intact. Ears, nose, mouth and throat: Tacky oral mucosa Cardiovascular: Regular, Normal peripheral perfusion. Respiratory: Lungs are clear to auscultation, respirations are non-labored, breath sounds are equal, Symmetrical chest wall expansion. Gastrointestinal: Soft, Nontender, Non distended Musculoskeletal: Normal ROM, no deformity. Neurological: Alert and oriented, No focal neurological deficit observed. Psychiatric: Cooperative, appropriate mood & affect. Course Vital Signs: Vital signs: Vital Signs Temperature 97.6 F 05/29/25 19:33 Pulse Rate 64 05/29/25 22:22 Respiratory Rate 14 05/29/25 22:22 Blood Pressure 118/60 05/29/25 22:22 Pulse Oximetry 95 05/29/25 22:22 Oxygen Delivery Me thod Room Air 05/29/25 19:33 MDM - Weakness Medical Decision Making Medical decision making: Differential diagnosis for patient presenting with generalized weakness including but not limited to and based on the above HPI, review of systems and physical exam: Sepsis. Dehydration. Renal failure. Electrolyte abnormalities. Anemia. Congestive heart failure. Hypotension. Coronary syndrome. Hepatitis. Cirrhosis. Infections such as pneumonia, urinary tract infection, [place] bourne illness, Cellulitis, Viral infections including influenza and Covid-19. Workup: labwork and lab/exam driven imaging ordered to evaluate, rule in and rule out above pathologies. Lab Review: Laboratory results were reviewed and interpreted by myself the emergency room physician. No leukocytosis. No anemia. No renal failure. Urine does have 4+ bacteria with few white cells. With trace leukocyte esterase. This is the only thing I can find that would cause her to be nauseous and feel weak at this time. She does appear slightly dehydrated fluids were given. Chest x-ray: No acute process. No infiltrate. No pneumothorax. This was reviewed and interpreted by myself the emergency room physician. I also reviewed the radiology report. I reviewed the patient's medical record. Reexamination: Patient remained stable. No increased work of breathing. No altered mental status. No focal motor deficits. Assessment and plan: Weakness Dehydration Urinary tract infection ? Normal saline bolus, IV Zofran and IV Rocephin - Discharged home - Discussed plan with patient. Answered any questions. - Evaluation and treatment of this problem were appropriate in the emergency setting. Lab Data 05/29/25 20:27 05/29/25 20:27 Radiology Impressions Chest X-Ray 05/29/25 19:36 IMPRESSION: 1. Small focus of linear scar versus linear atelectasis right lateral lung base. 2. No acute findings. Laboratory Results WBC 7.77 10^3/uL (3.29-11.43) 05/29/25 20: RBC 3.66 10^6/uL (3.85-5.65) L 05/29/25 20: Hgb 11.20 g/dL (11.27-16.99) L 05/29/25 20: Hct 34.2 % (36-47) L 05/29/25 20: MCV 93.4 fl (85-98) 05/29/25 20: MCH 30.6 pg (27-33) 05/29/25 20: MCHC 32.7 g/dL (30-55) 05/29/25 20: RDW 12.0 % (12.1-15.1) L 05/29/25: Plt Count 260 10^3/cmm (157-399) 05/29/25 20: MPV 11.1 fL (7.4-10.4) H 05/29/25 20: Neut % (Auto) 73.1 % 05/29/25: Lymph % (Auto) 18.5 % 05/29/25: [place] % (Auto) 6.2 % 05/29/25 20: Eos % (Auto) 1.5 % 05/29/25 20: Baso % (Auto) 0.4 % 05/29/25: Neut # (Auto) 5.68 10^3/uL (1.8-7.7) 05/29/25 20: Lymph # (Auto) 1.4 10^3/uL (0.8-4.8) 05/29/25 20:27 [place]aine # (Auto) 0.5 10^3/uL (0.2-0.9) 05/29/25 20:27 Eos # (Auto) 0.1 10^3/uL (0.0-0.8) 05/29/25 20: Baso # (Auto) 0.0 10^3/uL (0.0-0.1) 05/29/25 20: Nucleated RBC % (auto) 0 % 05/29/25 20: Nucleated RBCs # 0.0 /100WBC 05/29/25 20: Sodium 140 mmol/L (136-145) 05/29/25 20: Potassium 3.8 mmol/L (3.5-5.1) 05/29/25 20: Chloride 104 mmol/L (98-107) 05/29/25: Carbon Dioxide 24 mmol/L (22-29) 05/29/25: Anion Gap 15.8 (5-19) 05/29/25 20: BUN 15 mg/dL (6-20) 05/29/25 20: Creatinine 0.5 mg/dL (0.5-0.9) 05/29/25: GFR Calculation 130.6 mL/min (90-130) H 05/29/25 20: Glucose 89 mg/dL (65-115) 05/29/25 20: Calculated Osmolality 290 mOsm/kg (285-295) 05/29/25: Lactic Acid 1.1 mmol/L (0.5-2.2) 05/29/25: Calcium 8.8 mg/dL (8.5-10.5) 05/29/25: Total Bilirubin 0.2 mg/dL (0.15-1.2) 05/29/25 20: AST 11 U/L (0-32) 05/29/25: ALT 12 U/L (0-33) 05/29/25: Alkaline Phosphatase 54 U/L (35-105) 05/29/25 20: Total Protein 6.1 g/dL (6.6-8.7) L 05/29/25: Albumin 3.8 g/dL (3.5-5.2) 05/29/25: Globulin 2.3 g/dL (1.3-4.6) 05/29/25 20:27 HCG, Qual Negative (Negative) 05/29/25 20:27 Urine Color Yellow (Yellow) 05/29/25 22:20 Urine Appearance Cloudy (CLEAR) A 05/29/25 22:20 Urine pH 6.0 (5-7) 05/29/25 22:20 Ur Specific [place] 1.024 (1.005-1.030) 05/29/25 22:20 Urine Protein Negative (Negative) 05/29/25 22:20 Urine Glucose (UA) Negative (Normal) 05/29/25 22:20 Urine Ketones 2+ (Negative) H 05/29/25 22:20 Urine Blood Negative (Negative) 05/29/25 22:20 Urine Nitrate Negative (Negative) 05/29/25 22:20 Urine Bilirubin Negative (Negative) 05/29/25 22:20 Urine Urobilinogen 1.0 mg/dL (Negative) 05/29/25 22:20 Ur Leukocyte Esterase Trace (Negative) A 05/29/25 22:20 Urine RBC 0-2 /hpf (0-2) 05/29/25 22:20 Urine WBC 6-10 /hpf (0-5) 05/29/25 22:20 Ur Squamous Epith Cells 6-10 /hpf (0-5) 05/29/25 22:20 Amorphous Sediment Not Reportable 05/29/25 22:20 Urine Bacteria 4+ /hpf (NONE) H 05/29/25 22:20 Hyaline Casts 0.40 /lpf 05/29/25 22:20 Urine Opiates Screen Negative ng/mL (Negative) 05/29/25 22:20 Ur Barbiturates Screen Positive ng/mL (Negative) H 05/29/25 22:20 Ur Phencyclidine Scrn Negative ng/mL (Negative) 05/29/25 22:20 Ur Amphetamines Screen Negative ng/mL (Negative) 05/29/25 22:20 U Benzodiazepines Scrn Negative ng/mL (Negative) 05/29/25 22:20 Urine Cocaine Screen Negative ng/mL (Negative) 05/29/25 22:20 U Marijuana (THC) Screen Negative ng/mL (Negative) 05/29/25 22:20 All radiology interpretation(s) finalized by discharge Discharge Plan Discharge Patient Disposition: Home Clinical Impression: Urinary tract infection Condition: Stable Prescriptions: New cephalexin 500 mg tablet 500 mg PO TID 7 Days Qty: 21 0RF ondansetron 4 mg tablet,disintegrating 4 mg PO Q8H PRN (Reason: nausea and vomiting) Qty: 10 0RF No Action buprenorphine-naloxone [Suboxone] 8-2 mg film 2 film buccal DAILY Rx Instructions: place 1 film on inside of (each) cheek ondansetron HCl 8 mg tablet 8 mg PO Q12H Qty: 60 1RF aripiprazole [Abilify] 2 mg tablet 2 mg PO DAILY diazepam 10 mg tablet 10 mg PO ONCE Qty: 1 0RF fluticasone propionate 50 mcg/actuation spray,suspension 1 spray intranasal DAILY Qty: 16 5RF Rx Instructions: administer into each nostril lqjfkegybo-ewvqzbdzhbabj-btrg 50-325-40 mg tablet 1 tab PO Q6H PRN (Reason: headache) 7 Days Qty: 7 0RF venlafaxine [Effexor XR] 150 mg capsule,extended release 24hr 150 mg PO DAILY Qty: 30 1RF propranolol 20 mg tablet 20 mg PO BID Qty: 60 1RF lisinopril 10 mg tablet 10 mg PO DAILY Qty: 90 0RF Allergy Relief D-24hr 10-240 mg tablet extended release 24 hr See Rx Instructions .ROUTE .COMPLEX Qty: 30 1RF Dose Instruction: TAKE 1 TABLET BY MOUTH EVERY DAY Rx Instructions: TAKE 1 TABLET BY MOUTH EVERY DAY ketorolac 10 mg tablet 10 mg PO TID PRN (Reason: pain) Qty: 10 0RF Discharge Orders: Discharge ED (Routine); Ordered 05/29/25 Ordered By: Delfina Grissom Referrals: Xochilt Hudson MD [Primary Care Provider, Family Practice] Discharge Diet: Usual diet Discharge Activity: Increase activity as tolerated Patient Instructions: Urinary Tract Infection in Women (ED), Opioid Safety, Pain Management, Patient Portal & Brody Instructions Activity Restrictions/Additional Instructions: Thank you for choosing [facility] for your healthcare needs today. You have been screened and evaluated and felt safe for discharge. Health conditions do change or evolve sometimes and as such it is important that you follow up with your Primary Doctor to be re checked, 3-5 days is a general good time frame for follow up. You are always welcome to return to the ED for re assessment if your symptoms are worsening or you have new concerns Print Language: Zambian Coding Level of Care Code ED Pet Counselor for Allan Huertas
[2025-05-29 20:16] VITALS: BP 128/68; PULSE 60; RESP 14; O2SAT 98
[2025-05-29 20:43] LABS: Hematocrit 34.2 % (36-47); Hemoglobin 11.20 g/dL (11.27-16.99); Mean Corpuscular HGB Conc 32.7 g/dL (30-55); Mean Corpuscular Hemoglobin 30.6 pg (27-33); Mean Corpuscular Volume 93.4 fl (85-98); Nucleated Red Blood Cells % 0 %; Platelet Count 260 10^3/cmm (157-399); Red Blood Count 3.66 10^6/uL (3.85-5.65); White Blood Count 7.77 10^3/uL (3.29-11.43)
[2025-05-29 21:05] LABS: Alanine Aminotransferase 12 U/L (0-33); Albumin Level 3.8 g/dL (3.5-5.2); Alkaline Phosphatase 54 U/L (35-105); Anion Gap 15.8 (5-19); Aspartate Amino Transferase 11 U/L (0-32); Blood Urea Nitrogen 15 mg/dL (6-20); Calcium 8.8 mg/dL (8.5-10.5); Carbon Dioxide 24 mmol/L (22-29); Chloride 104 mmol/L (98-107); Creatinine Clr Calc Pharmacy 145.9306; Globulin 2.3 g/dL (1.3-4.6); Glucose 89 mg/dL (65-115); Osmolality Calculated 290 mOsm/kg (285-295); Potassium 3.8 mmol/L (3.5-5.1); Sodium 140 mmol/L (136-145); Total Protein 6.1 g/dL (6.6-8.7)
[2025-05-29 21:27] LABS: HCG, Serum Qual Negative (Negative)
[2025-05-29 21:55] LABS: Lactic Sepsis W/Reflex 1.1 mmol/L (0.5-2.2)
[2025-05-29 22:22] VITALS: BP 118/60; PULSE 64; RESP 14; O2SAT 95
[2025-05-29 22:36] LABS: Glucose Urine UA Negative (Normal); Nitrate Urine Negative (Negative); Specific Gravity, Urine 1.024 (1.005-1.030)
[2025-05-29 22:43] LABS: PCP Screen Urine Negative (Negative)
[2025-05-29] MEDS: ondansetron 2 mg/ML SDV 2 mL 4 MG IVP (23:07)
[2025-05-29] MEDS: cefTRIAXone 1,000 mg SDV 1000 MG IVP (23:08)
[2025-05-29 23:17] VITALS: BP 110/62; PULSE 67; RESP 14; O2SAT 98
--- OUTSIDE RECORDS SUMMARY | 2025-05-31 03:11 | XMS_ITS | Patient Health Record ---
Author Organization [facility] Address [address] [facility] [address] [place] [address] Support Name Relationship Address Phone Lee Pastor Emergency Contact [address] [place] [address] Aure Valladares Guarantor Unknown [phone] Allergies Allergen (clinical drug ingredient) Drug/Non Drug [...] Problem Status W/U Status Risk Notes Problem [id number] Lumbago with sciatica, right side (M54.41) Active confirmed Problem [id number] Lumbago with sciatica, left side (M54.42) Active confirmed Problem [id number] Primary hypertension (I10) Active confirmed Plan Of Treatment No Information Medications Administered Medication Instructions Date of Administration Dosage Notes Toradol 15mg/unit (use this one) 09/10/2023 60 mg Celestone/betamethasone acet ate (use this one)-3mg 11/30/2023 12 mg Medical (General) History Surgical History Surgery Date(Month/Year) hysterectomy 2002 c section 2002 gallbladder removal 2006
--- OUTSIDE RECORDS SUMMARY | 2025-05-31 03:12 | XMS_ITS | Clinical Summary ---
Author Organization [facility] Address [address] [place] [address] Care Team Providers Care Content Developer Name Role Phone Unavailable Primary Care Provider [...] this topic Insurance [address] [place] [id number] [place] MED[place] REFERRAL REQ
--- OUTSIDE RECORDS SUMMARY | 2025-05-31 03:12 | XMS_ITS | Encounter Summary ---
Author Organization [facility] Address [address] [place] [address] Care Team Providers Care Fur Feeder Name Role Phone Unavailable Primary Care Provider Unavailabl e Encounter Details Date Type Department Care Team ([facility] st Contact Info) Description 05/04/2024 Outside Records [facility] [address] [facility] [place] [address] Interface, Provider Social History Tobacco Use Types [...]
--- OUTSIDE RECORDS SUMMARY | 2025-05-31 03:12 | XMS_ITS | Patient Health Record ---
Author Organization [facility] Address [address] [place], [place] [address] Care Team Providers Care Ob/Gyn Doctor Name Role Phone Pedro MURRELL, Ton Primary Care Provider Unavail able Mel MURRELL, Danielito Unavailable [phone] Reason For Referral No Information Plan Of Treatment No Information Insurance Providers Payer Name Payer Address Payer Phone Subscriber Number Group Number Insured Name Patient Relationship to Insured Coverage Start Date Coverage End Date BCBS [address] [place] [address] [id number] Aure Lama Self - patient is the insured CIGNA [address] [place] [phone] [id number] Aure Lama Self - patient is the insured
--- OUTSIDE RECORDS SUMMARY | 2025-05-31 03:12 | XMS_ITS | Encounter Summary ---
Author Organization [facility] Address [address] [place] [address] Care Team Providers Care Cloud Physicist Name Role Phone Unavailable Primary Care Provider Unavailabl e Encounter Details Date Type Department Care Team (Latest Contact Info) Description 03/06/2024 [place] [address] Rubin Hernandez MD [address] [place] [address] Benign neoplasm of pituitary gland (HCC) (Primary [...]
== END 2025-05-29 23:19 | disposition home or self-care (01) ==
PROVIDERS: Emergency Provider Emergency Medicine; PCP Family Medicine
DX: N39.0 Urinary tract infection, site not specified (principal); Z72.0 Tobacco use; I10 Essential (primary) hypertension
CPT/HCPCS: 36415; 71045; 80053; 80306; 81001; 83605; 84703; 85025; 87040; 96374; 96375; 99284; J0696; J2405

== ENCOUNTER 2025-06-16 11:28 | Emergency (ER) | payer OTHER, MEDICAID, SELFPAY ==
--- OUTSIDE RECORDS SUMMARY | 2025-06-16 11:32 | XMS_ITS | Clinical Summary ---
Author Organization [facility] Address [address] [place] [address] Care Team Providers Care Wired Music Operator Name Role Phone Unavailable Primary Care Provider [...] this topic Insurance [address] [place] [id number] [place] REFERRAL REQ
--- OUTSIDE RECORDS SUMMARY | 2025-06-16 11:32 | XMS_ITS | Patient Health Record ---
Author Organization [facility] Address [address] [facility] [address] [place] [address] Support Name Relationship Address Phone Lee Pastor Emergency Contact [address] [place] [address] Aure Valladares Guarantor Unknown [phone] Allergies Allergen (clinical drug ingredient) Drug/Non Drug [...] Problem Status W/U Status Risk Notes Problem [id number] Lumbago with sciatica, right side (M54.41) Active confirmed Problem [id number] Lumbago with sciatica, left side (M54.42) Active confirmed Problem 64121418 Primary hypertension (I10) Active confirmed Plan Of Treatment No Information Medications Administered Medication Instructions Date of Administration Dosage Notes Toradol 15mg/unit (use this one) 09/10/2023 60 mg Celestone/betamethasone acet ate (use this one)-3mg 11/30/2023 12 mg Medical (General) History Surgical History Surgery Date(Month/Year) hysterectomy 2002 c section 2002 gallbladder removal 2006
--- OUTSIDE RECORDS SUMMARY | 2025-06-16 11:32 | XMS_ITS | Encounter Summary ---
Author Organization [facility] Address [address] [place] [address] Care Team Providers Care Product Safety Head Name Role Phone Unavailable Primary Care Provider Unavailabl e Encounter Details Date Type Department Care Team ([facility] st Contact Info) Description 05/04/2024 Outside Records [facility] [address] [facility] [place] [address] Interface, Provider Social History Tobacco Use Types [...]
--- OUTSIDE RECORDS SUMMARY | 2025-06-16 11:32 | XMS_ITS | Patient Health Record ---
Author Organization [facility] [employer] Address [address] [place], [place] [address] Care Team Providers Care Shoes Salesperson Name Role Phone Pedro MURRELL, Ton Primary Care Provider Unavail able Mel MURRELL, Danielito Unavailable [phone] Reason For Referral No Information Plan Of Treatment No Information Insurance Providers Payer Name Payer Address Payer Phone Subscriber Number Group Number Insured Name Patient Relationship to Insured Coverage Start Date Coverage End Date BCBS [address] [place] [address] [id number] Aure Lama Self - patient is the insured CIGNA [address] [place] [id number] Aure Lama Self - patient is the insured
--- OUTSIDE RECORDS SUMMARY | 2025-06-16 11:32 | XMS_ITS | Encounter Summary ---
Author Organization [facility] [employer] Address [address] [place] [address] Care Team Providers Care Ring Maker Name Role Phone Unavailable Primary Care Provider Unavailabl e Encounter Details Date Type Department Care Team (Latest Contact Info) Description 03/06/2024 [place] [address] Rubin Hernandez MD [address] [place] [address] Benign neoplasm of pituitary gland (HCC) (Primary [...]
[2025-06-16 11:39] VITALS: BP 101/62; PULSE 83; RESP 16; TEMP 36.7; O2SAT 99
--- NOTE | 2025-06-16 12:25 | ED_ITS ---
HPI - Headache General: Chief Complaint: Headache Stated Complaint: headachs Time Seen by Provider: 06/16/25 12:00 Source: patient Mode of arrival: ambulatory Limitations: no limitations History of Present Illness: 50-year-old female with a history of gianni aubree states she had a migraine headache over the last 2 days headaches currently an 8 out of 10 has had some nausea and vomiting as well. States her pain meds are not working she denies any fevers. States headache is worse with lights and sounds like her previous migraines. Associated symptoms: Deny chest pain, fever(s), nausea, rash or vomiting Related Data Home Medications ?Medication ?Instructions ?Recorded ?Confirmed buprenorphine 8 mg-naloxone 2 mg 2 film buccal DAILY 0 02/20/25 04/01/25 sublingual film (Suboxone) aripiprazole 2 mg tablet (Abilify) 2 mg PO DAILY 04/0104/01/25 Previous Rx's ?Medication ?Instructions ?Recorded ondansetron HCl 8 mg tablet 8 mg PO Q12H #60 tabs 01/30 01/22 diazepam 10 mg tablet 10 mg PO ONCE anxiety #1 tab 04/01/25 fluticasone propionate 50 1 spray intranasal DAILY #16 grams 04/01/25 mcg/actuation nasal spray,suspension venlafaxine 150 mg 150 mg PO DAILY #30 caps capsule,extended release 24 hr (Effexor XR) lisinopril 10 mg tablet 10 mg PO DAILY #90 tabs 04/01 03/24 propranolol 20 mg tablet 20 mg PO BID #60 tabs loratadine-pseudoephedrine ER 10 See Rx Instructions . Route 04/29/25 mg-240 mg tablet,extended .COMPLEX #30 tabs [id number] (Allergy Relief D-24hr) ketorolac 10 mg tablet 10 mg PO TID PRN pain #10 ta bs 05/26/25 ondansetron 4 mg disintegrating 4 mg PO Q8H PRN nausea and 05/29/25 tablet vomiting #10 tabs gpeozhflbs-yoiwbhefwnbkb-hmqrmswj 1 tab PO Q6H PRN hea dache 7 days 06/16/25 50 mg-325 mg-40 mg tablet #7 tabs metoclopramide HCl 10 mg tablet 10 mg PO Q6H PRN nause a and 06/16/25 (Reglan) vomiting #20 tabs Allergies Allergy/AdvReac Type Severity Reaction Status Date / Time meperidine (From Demerol) Allergy ALGY-Difficulty Verified 04/16/25 10:12 Breathing prochlorperazine (From Allergy ALGY-Hives Verified 04/01/25 07:15 Compazine) Review of Systems Const: Denies: fever(s), chills, body aches or change in appetite Eyes: Denies: blurry vision or eye discomfort ENMT: Denies: throat pain or dental pain Card: Denies: chest pain Resp: Denies: dyspnea GI: Denies: abdominal pain, nausea, vomiting or diarrhea : Denies: dysuria Musc: Denies: neck pain or back pain Skin/Breast: Denies: rash Neuro: Denies: headache(s) Psych: Denies: depression Elmo/Lymph: Denies: easy bruising All/Imm: Denies: urticaria PFSH ED PFSH: Medical History Migraine, chronic, without aura on Fioricet for years Hypertension Hx of substance abuse opioids; last use 2010; goes to [facility] for Suboxone Bilateral primary osteoarthritis of knee reports had injections; saw [facility], had MRI was told needed knee replacement Family history of breast cancer in first degree relative Nicotine dependence, cigarettes, with other nicotine-induced disorders Pituitary tumor 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20, treated w/ parlodel; went away; reports symptoms returned Depression with anxiety Post traumatic stress disorder (PTSD) Bipolar 1 disorder Surgical History History of cholecystectomy History of partial hysterectomy ovaries remaining; done for endometriosis and precancerous cells of cervix Hx of section X 2 History of carpal tunnel surgery of right wrist Family History Father Pancreatic cancer Mother Parkinson disease Heart disease Sister Breast cancer Social History Smoking and tobacco/nicotine status: current every day tobacco/nicotine user Second hand smoke exposure: No Alcohol intake: never Substance/Drug Use: former Date of last use: 2010 Former substance use details: opiates; [facility] Household members: other Details: living with mother currently Marital status: Legally Number of children: 3 Highest education level completed: Some College, No Degree Current occupational status: unemployed 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 Physical Exam Const: COMMON NORMALS: no acute distress, patient oriented x3 and healthy a ppearing HENMT: COMMON NORMALS: normocephalic and atraumatic HEAD & SCALP: normocephalic and atraumatic Eye: COMMON NORMALS: conjunctivae normal CONJUNCTIVA: Yes conjunctivae normal Neck/C-Spine: COMMON NORMALS: full ROM and supple Chest: COMMONS NORMALS: normal inspection of the chest and normal palpation of entire chest wall Resp: COMMON NORMALS: normal respiratory effort, No retractions, No use of accessory muscles and clear to auscultation bilaterally AUSCULTATION: clear to auscultation bilaterally Cardio: COMMON NORMALS: regular rate, regular rhythm and No murmurs present (Cardio) RATE: regular rate RHYTHM: regular rhythm Extremity: COMMON NORMALS: normal to inspection and full ROM Neuro: COMMON NORMALS: patient oriented x3, moves all extremities and no focal motor deficits Psych: COMMON NORMALS: mental status grossly normal, Normal thought process present and cooperative THOUGHT PROCESS: Normal thought process present Skin: COMMON NORMALS: no rashes or lesions noted and no wounds GENERAL SKIN EXAM: no rashes or lesions noted Course Vital Signs: Vital signs: Vital Signs Temperature 98.1 F 06/16/25 11:39 Pulse Rate 77 06/16/25 13:32 Respiratory Rate 16 06/16/25 11:39 Blood Pressure 129/79 06/16/25 13:32 Pulse Oximetry 100 06/16/25 13:32 Oxygen Delivery Me thod Room Air 06/16/25 13:32 MDM - Headache Medical Decision Making Patient presents here with headaches likely migraine headache she feels much improved here head CT is normal she is stable for discharge she is no signs of meningitis no signs of subarachnoid hemorrhage she is follow-up with PCP and return if worsening. Medical Records I reviewed the patient's medical records. Lab Data Radiology Impressions Head CT 06/16/25 13:17 IMPRESSION: 1. No acute intracranial finding. 2. Mild mucosal thickening in ethmoidal air cells. All radiology interpretation(s) finalized by discharge Discharge Plan Discharge Patient Disposition: Home Clinical Impression: Headache Condition: Stable Prescriptions: New metoclopramide HCl [Reglan] 10 mg tablet 10 mg PO Q6H PRN (Reason: nausea and vomiting) Qty: 20 0RF Continued pwirngjycj-skxixtbewhhun-wagr 50-325-40 mg tablet 1 tab PO Q6H PRN (Reason: headache) 7 Days Qty: 7 0RF No Action buprenorphine-naloxone [Suboxone] 8-2 mg film 2 film buccal DAILY Rx Instructions: place 1 film on inside of (each) cheek ondansetron HCl 8 mg tablet 8 mg PO Q12H Qty: 60 1RF aripiprazole [Abilify] 2 mg tablet 2 mg PO DAILY diazepam 10 mg tablet 10 mg PO ONCE Qty: 1 0RF fluticasone propionate 50 mcg/actuation spray,suspension 1 spray intranasal DAILY Qty: 16 5RF Rx Instructions: administer into each nostril venlafaxine [Effexor XR] 150 mg capsule,extended release 24hr 150 mg PO DAILY Qty: 30 1RF propranolol 20 mg tablet 20 mg PO BID Qty: 60 1RF lisinopril 10 mg tablet 10 mg PO DAILY Qty: 90 0RF Allergy Relief D-24hr 10-240 mg tablet extended release 24 hr See Rx Instructions .ROUTE .COMPLEX Qty: 30 1RF Dose Instruction: TAKE 1 TABLET BY MOUTH EVERY DAY Rx Instructions: TAKE 1 TABLET BY MOUTH EVERY DAY ketorolac 10 mg tablet 10 mg PO TID PRN (Reason: pain) Qty: 10 0RF ondansetron 4 mg tablet,disintegrating 4 mg PO Q8H PRN (Reason: nausea and vomiting) Qty: 10 0RF Discharge Orders: Discharge ED (Routine); Ordered 06/16/25 Ordered By: Kashmir Sexton Referrals: Xochilt Hudson MD [Primary Care Provider, Family Practice] - 4-7 days Discharge Diet: Advance as tolerated Discharge Activity: Resume usual activity Patient Instructions: Migraine Headache (ED) Print Language: Beninese Coding Level of Care Code ED Videotape Sales Representative for Allan Huertas
[2025-06-16 12:35] VITALS: BP 103/64; PULSE 64; O2SAT 97
[2025-06-16] MEDS: metoclopramide 5 mg/mL SDV 2 mL 10 MG IVP (12:37)
[2025-06-16] MEDS: diphenhydrAMINE 50 mg/mL SDV 1mL IVP (12:37)
--- NOTE | 2025-06-16 13:17 | CTR_ITS ---
PROCEDURE INFORMATION: Exam: CT Head Without Contrast Exam date and time: 06/16/2025 1:23 PM Age: 50 years old Clinical indication: Pain; Headache wo vision changes, no known trauma. ; Additional info: HOLLEY TECHNIQUE: Imaging protocol: Computed tomography of the head without contrast. Radiation optimization: All CT scans at this facility use at least one of these dose optimization techniques: automated exposure control; mA and/or kV adjustment per patient size (includes targeted exams where dose is matched to clinical indication); or iterative reconstruction. COMPARISON: No relevant prior studies available. RADIATION DOSE METRICS: Total DLP (mGy-cm): 1089.1 FINDINGS: Brain: Normal. No hemorrhage. Unremarkable white matter. No mass effect. Cerebral ventricles: No ventriculomegaly. Paranasal sinuses: Mild mucosal thickening in ethmoidal air cells. Mastoid air cells: Visualized mastoid air cells are well aerated. Bones: Unremarkable. No acute fracture. Soft tissues: Unremarkable. CT/CT head wo con* 19383 IMPRESSION: 1. No acute intracranial finding. 2. Mild mucosal thickening in ethmoidal air cells.
[2025-06-16 13:32] VITALS: BP 129/79; PULSE 77; O2SAT 100
[2025-06-16 15:00] VITALS: BP 115/68; PULSE 77; O2SAT 98
== END 2025-06-16 15:00 | disposition home or self-care (01) ==
PROVIDERS: Emergency Provider Emergency Medicine; PCP Family Medicine
DX: R51.9 Headache, unspecified (principal); Z72.0 Tobacco use; I10 Essential (primary) hypertension
CPT/HCPCS: 70450; 96374; 96375; 96376; 99285; J1200; J1885; J2765

== ENCOUNTER 2025-06-26 18:46 | Emergency (ER) | payer OTHER, MEDICAID, SELFPAY ==
[2025-06-26] VITALS (7 sets, daily range): BP systolic 94–121; BP diastolic 51–77; PULSE 58–78; RESP 16–17; TEMP 35.7; O2SAT 93–97
--- OUTSIDE RECORDS SUMMARY | 2025-06-26 18:51 | XMS_ITS | Patient Health Record ---
Author Organization [facility] Address [address] [address] [place] [address] Support Name Relationship Address Phone Lee Pastor Emergency Contact [address] [place] [address] Aure Valladares Guarantor Unknown [phone] Allergies Allergen (clinical drug ingredient) Drug/Non Drug [...] Problem Status W/U Status Risk Notes Problem [id number] Lumbago with sciatica, right side (M54.41) Active confirmed Problem 089007012 Lumbago with sciatica, left side (M54.42) Active confirmed Problem 31939614 Primary hypertension (I10) Active confirmed Plan Of Treatment No Information Medications Administered Medication Instructions Date of Administration Dosage Notes Toradol 15mg/unit (use this one) 09/10/2023 60 mg Celestone/betamethasone acet ate (use this one)-3mg 11/30/2023 12 mg Medical (General) History Surgical History Surgery Date(Month/Year) hysterectomy 2002 c section 2002 gallbladder removal 2006
--- OUTSIDE RECORDS SUMMARY | 2025-06-26 18:51 | XMS_ITS | Encounter Summary ---
Author Organization [facility] Address [address] [place] [address] Care Team Providers Care White Mixing Operator Name Role Phone Unavailable Primary Care Provider Unavailabl e Encounter Details Date Type Department Care Team ([facility] st Contact Info) Description 05/04/2024 Outside Records [facility] [address] [facility] [place] [address] Interface, Provider Social History Tobacco Use Types [...]
--- OUTSIDE RECORDS SUMMARY | 2025-06-26 18:51 | XMS_ITS | Encounter Summary ---
Author Organization [facility] [facility] Address [address] [place] [address] Care Team Providers Care Set Up Mechanic Automatic Line Name Role Phone Unavailable Primary Care Provider Unavailabl e Encounter Details Date Type Department Care Team (Latest Contact Info) Description 03/06/2024 [place] [address] Rubin Hernandez MD [address] [place] [address] Benign neoplasm of pituitary gland (HCC) (Primary [...]
--- OUTSIDE RECORDS SUMMARY | 2025-06-26 18:51 | XMS_ITS | Patient Health Record ---
Author Organization [facility] Address [address] [place], [place] [address] Care Team Providers Care Felt Machine Mechanic Name Role Phone Pedro MURRELL, Ton Primary Care Provider Unavail able Mel MURRELL, Danielito Unavailable [phone] Reason For Referral No Information Plan Of Treatment No Information Insurance Providers Payer Name Payer Address Payer Phone Subscriber Number Group Number Insured Name Patient Relationship to Insured Coverage Start Date Coverage End Date BCBS [address] [place] [phone] [id number] Aure Lama Self - patient is the insured [employer] [address] [place] [phone] [id number] Aure Lama Self - patient is the insured
--- OUTSIDE RECORDS SUMMARY | 2025-06-26 18:51 | XMS_ITS | Clinical Summary ---
Author Organization [facility] Address [address] [place] [address] Care Team Providers Care Salt Manager Name Role Phone Unavailable Primary Care Provider [...] this topic Insurance [address] [place] [id number] [place]ICA[place]-NO REFERRAL REQ
--- NOTE | 2025-06-26 18:52 | ECG_ITS ---
[facility] Date: 2025-06-26 Pat Name: Aure Valladares Department: Room: Gender: Female Lead Developer: : 1975 Requested By: Delfina Jerry Order Number: [id number] MD: Tomas Perez M.D. Measurements Intervals [place] Rate: 55 P: 49 AL: 160 QRS: 17 QRSD: 94 T: 19 QT: 485 QTc: 464 Interpretive Statements SINUS BRADYCARDIA LOW QRS VOLTAGE IN PRECORDIAL LEADS [QRS DEFLECTION < 1.0 mV IN CHEST LEADS] No previous ECG available for comparison Electronically Signed On 06-26-2025 22:07:20 CDT by Tomas Perez M.D. [email or web address]
--- NOTE | 2025-06-26 18:53 | ED_ITS ---
HPI - Alcohol 2 General: Chief Complaint: Alcohol Stated Complaint: Severe ETOH, Suboxen Time Seen by Provider: 06/26/25 18:47 History of Present Illness: 50-year-old female who presents to the e mergency room with complaint per EMS of alcohol intoxication. Said she had about 8 shots and now she will not answer any questions and just had some moans. Possibly also some Suboxone use. She is maintaining her airway. And she will moan at questions but will not answer anything directly currently Related Data Home Medications ?Medication ?Instructions ?Recorded ?Confirmed buprenorphine 8 mg-naloxone 2 mg 2 film buccal DAILY 0 02/20/25 04/01/25 sublingual film (Suboxone) aripiprazole 2 mg tablet (Abilify) 2 mg PO DAILY 04/0104/01/25 Previous Rx's ?Medication ?Instructions ?Recorded ondansetron HCl 8 mg tablet 8 mg PO Q12H #60 tabs 01/30 01/22 diazepam 10 mg tablet 10 mg PO ONCE anxiety #1 tab 04/01/25 fluticasone propionate 50 1 spray intranasal DAILY #16 grams 04/01/25 mcg/actuation nasal spray,suspension venlafaxine 150 mg 150 mg PO DAILY #30 caps capsule,extended release 24 hr (Effexor XR) lisinopril 10 mg tablet 10 mg PO DAILY #90 tabs 04/01 03/24 propranolol 20 mg tablet 20 mg PO BID #60 tabs ketorolac 10 mg tablet 10 mg PO TID PRN pain #10 ta bs 05/26/25 ondansetron 4 mg disintegrating 4 mg PO Q8H PRN nausea and 05/29/25 tablet vomiting #10 tabs jydozfyoob-yjulhdcoezrqs-adiklfvg 1 tab PO Q6H PRN hea dache 7 days 06/16/25 50 mg-325 mg-40 mg tablet #7 tabs metoclopramide HCl 10 mg tablet 10 mg PO Q6H PRN nause a and 06/16/25 (Reglan) vomiting #20 tabs loratadine-pseudoephedrine ER 10 See Rx Instructions . Route 06/21/25 mg-240 mg tablet,extended .COMPLEX #30 tabs [id number] (Allergy Relief D-24hr) Allergies Allergy/AdvReac Type Severity Reaction Status Date / Time meperidine (From Demerol) Allergy ALGY-Difficulty Verified 04/16/25 10:12 Breathing prochlorperazine (From Allergy ALGY-Hives Verified 04/01/25 07:15 Compazine) Review of Systems 2 Narrative: Constitutional symptoms: Negative except as documented in HPI. Skin symptoms: Negative except as documented in HPI. Eye symptoms: Negative except as documented in HPI. ENMT symptoms: Negative except as documented in HPI. Respiratory symptoms: Negative except as documented in HPI. Cardiovascular symptoms: Negative except as documented in HPI. Gastrointestinal symptoms: Negative except as documented in HPI. Genitourinary symptoms: Negative except as documented in HPI. Musculoskeletal symptoms: Negative except as documented in HPI. Neurologic symptoms: Negative except as documented in HPI. Psychiatric symptoms: Negative except as documented in HPI. Endocrine symptoms: Negative except as documented in HPI. PFSH ED 2 PFSH: Medical History (Updated 06/26/25 @ 21:03 by Delfina Grissom MD) Migraine, chronic, without aura on Fioricet for years Hypertension Hx of substance abuse opioids; last use 2010; goes to [facility] for Suboxone Bilateral primary osteoarthritis of knee reports had injections; saw [facility], had MRI was told needed knee replacement Family history of breast cancer in first degree relative Nicotine dependence, cigarettes, with other nicotine-induced disorders Pituitary tumor 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20, treated w/ [facility]; went away; reports symptoms returned Depression with anxiety Post traumatic stress disorder (PTSD) Bipolar 1 disorder Surgical History History of cholecystectomy History of partial hysterectomy ovaries remaining; done for endometriosis and precancerous cells of cervix Hx of section X 2 History of carpal tunnel surgery of right wrist Family History Father Pancreatic cancer Mother Parkinson disease Heart disease Sister Breast cancer Social History Smoking and tobacco/nicotine status: current every day tobacco/nicotine user Second hand smoke exposure: No Alcohol intake: never Substance/Drug Use: former Date of last use: 2010 Former substance use details: opiates; goes to 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 Neck: Supple, trachea midline. Eye: Extraocular movements are intact. Ears, nose, mouth and throat: Dry oral mucosa. Cardiovascular: Regular rate and rhythm, Normal peripheral perfusion. Respiratory: Lungs are clear to auscultation, respirations are non-labored, breath sounds are equal, Symmetrical chest wall expansion. Gastrointestinal: Soft, Nontender, Non distended Musculoskeletal: no deformity. Neurological: Somnolent will answer with moans and awakens, No obvious focal neurological deficit observed. Psychiatric: unable to assess. Course 2 Vital Signs: Vital signs: Vital Signs Temperature 96.2 F L 06/26/25 20:21 Pulse Rate 78 06/26/25 18:46 Respiratory Rate 16 06/26/25 18:46 Blood Pressure 121/77 06/26/25 18:46 Pulse Oximetry 97 06/26/25 18:46 Oxygen Delivery Me thod Room Air 06/26/25 18:46 MDM - Alcohol Medical Decision Making Medical decision making: Differential diagnosis including but not limited to and based on the above HPI, review of systems and physical exam: In this patient with altered mental status: Stroke. Hypoglycemia. Metabolic encephalopathy. Infections such as pneumonia, urinary tract infection, Covid-19, Influenza. Electrolyte abnormalities such as hypernatremia. Renal failure / uremia. Hepatic encephalopathy. Hypoxemia. Hypercapnic respiratory failure. Psychosis. Drug or alcohol intoxication. Medication overdose. Orders placed to evaluate differential diagnosis based on the above differential, HPI and physical exam Lab Review: Laboratory results were reviewed and interpreted by myself the emergency room physician. No leukocytosis. No anemia. No renal failure. Blood alcohol level is 121. She is positive for barbiturates. I reviewed the patient's medical record. Reexamination: Patient is a bit more awake now. She arouses and can tell me her name. She falls back asleep fairly rapidly. Will plan on discharging when she can find a ride and is awake enough to go home. She is maintaining her airway and O2 sats are good. Assessment and plan: Alcohol intoxication Dehydration ? Normal saline bolus and IV Zofran. - Discharged home - Discussed plan with patient. Answered any questions. - Evaluation and treatment of this problem were appropriate in the emergency setting. Lab Data 06/26/25 19:12 06/26/25 19:48 Laboratory Results WBC 6.23 10^3/uL (3.29-11.43) 06/26/25 19:12 RBC 4.18 10^6/uL (3.85-5.65) 06/26/25 19:12 Hgb 12.80 g/dL (11.27-16.99) 06/26/25 19:12 Hct 38.8 % (36-47) 06/26/25 19:12 MCV 92.8 fl (85-98) 06/26/25 19:12 MCH 30.6 pg (27-33) 06/26/25 19:12 MCHC 33.0 g/dL (30-55) 06/26/25 19:12 RDW 12.6 % (12.1-15.1) 06/26/25 19:12 Plt Count 347 10^3/cmm (157-399) 06/26/25 19:12 MPV 11.0 fL (7.4-10.4) H 06/26/25 19:12 Neut % (Auto) 32.4 % 06/26/25 19:12 Lymph % (Auto) 51.7 % 06/26/25 19:12 [place] % (Auto) 7.2 % 06/26/25 19:12 Eos % (Auto) 7.7 % 06/26/25 19:12 Baso % (Auto) 0.8 % 06/26/25 19:12 Neut # (Auto) 2.02 10^3/uL (1.8-7.7) 06/26/25 19:12 Lymph # (Auto) 3.2 10^3/uL (0.8-4.8) 06/26/25 19:12 [place] # (Auto) 0.5 10^3/uL (0.2-0.9) 06/26/25 19:12 Eos # (Auto) 0.5 10^3/uL (0.0-0.8) 06/26/25 19:12 Baso # (Auto) 0.1 10^3/uL (0.0-0.1) 06/26/25 19:12 Nucleated RBC % (auto) 0 % 06/26/25 19:12 Nucleated RBCs # 0.0 /100WBC 06/26/25 19:12 Sodium 139 mmol/L (136-145) 06/26/25 19:48 Potassium 3.9 mmol/L (3.5-5.1) 06/26/25 19:48 Chloride 103 mmol/L (98-107) 06/26/25 19:48 Carbon Dioxide 22 mmol/L (22-29) 06/26/25 19:48 Anion Gap 17.9 (5-19) 06/26/25 19:48 BUN 11 mg/dL (6-20) 06/26/25 19:48 Creatinine 0.7 mg/dL (0.5-0.9) 06/26/25 19:48 GFR Calculation 88.6 mL/min (90-130) L 06/26/25 19:48 Glucose 91 mg/dL (65-115) 06/26/25 19:48 Calculated Osmolality 287 mOsm/kg (285-295) 06/26/25 19:48 Calcium 9.1 mg/dL (8.5-10.5) 06/26/25 19:48 Total Bilirubin 0.2 mg/dL (0.15-1.2) 06/26/25 19:48 AST 13 U/L (0-32) 06/26/25 19:48 ALT 12 U/L (0-33) 06/26/25 19:48 Alkaline Phosphatase 59 U/L (35-105) 06/26/25 19:48 Total Protein 7.1 g/dL (6.6-8.7) 06/26/25 19:48 Albumin 4.4 g/dL (3.5-5.2) 06/26/25 19:48 Globulin 2.7 g/dL (1.3-4.6) 06/26/25 19:48 TSH 0.78 uIU/mL (0.27-4.20) 06/26/25 19:48 HCG, Qual Negative (Negative) 06/26/25 20:14 Urine Color Yellow (Yellow) 06/26/25 20:14 Urine Appearance Clear (CLEAR) 06/26/25 20:14 Urine pH 6.0 (5-7) 06/26/25 20:14 Ur Specific [place] 1.015 (1.005-1.030) 06/26/25 20:14 Urine Protein Negative (Negative) 06/26/25 20:14 Urine Glucose (UA) Negative (Normal) 06/26/25 20:14 Urine Ketones Negative (Negative) 06/26/25 20:14 Urine Blood Negative (Negative) 06/26/25 20:14 Urine Nitrate Negative (Negative) 06/26/25 20:14 Urine Bilirubin Negative (Negative) 06/26/25 20:14 Urine Urobilinogen 0.2 mg/dL (Negative) 06/26/25 20:14 Ur Leukocyte Esterase Negative (Negative) 06/26/25 20:14 Urine RBC 0-2 /hpf (0-2) 06/26/25 20:14 Urine WBC 0-5 /hpf (0-5) 06/26/25 20:14 Ur Squamous Epith Cells 0-5 /hpf (0-5) 06/26/25 20:14 Amorphous Sediment Not Reportable 06/26/25 20:14 Urine Bacteria None seen /hpf (NONE) 06/26/25 20:14 Hyaline Casts 0.40 /lpf 06/26/25 20:14 Salicylates < 0.3 mg/dL (3-10) L 06/26/25 19:48 Urine Opiates Screen Negative ng/mL (Negative) 06/26/25 20:14 Acetaminophen < 5.0 ug/mL (10-30) L 06/26/25 19:48 Ur Barbiturates Screen Positive ng/mL (Negative) H 06/26/25 20:14 Ur Phencyclidine Scrn Negative ng/mL (Negative) 06/26/25 20:14 Ur Amphetamines Screen Negative ng/mL (Negative) 06/26/25 20:14 U Benzodiazepines Scrn Negative ng/mL (Negative) 06/26/25 20:14 Urine Cocaine Screen Negative ng/mL (Negative) 06/26/25 20:14 U Marijuana (THC) Screen Negative ng/mL (Negative) 06/26/25 20:14 Ethyl Alcohol 121 mg/dL (0-10) H 06/26/25 19:48 No radiology studies performed this visit Discharge Plan Discharge Patient Disposition: Home Clinical Impression: Alcoholic intoxication Condition: Stable Prescriptions: No Action buprenorphine-naloxone [Suboxone] 8-2 mg film 2 film buccal DAILY Rx Instructions: place 1 film on inside of (each) cheek ondansetron HCl 8 mg tablet 8 mg PO Q12H Qty: 60 1RF aripiprazole [Abilify] 2 mg tablet 2 mg PO DAILY diazepam 10 mg tablet 10 mg PO ONCE Qty: 1 0RF fluticasone propionate 50 mcg/actuation spray,suspension 1 spray intranasal DAILY Qty: 16 5RF Rx Instructions: administer into each nostril venlafaxine [Effexor XR] 150 mg capsule,extended release 24hr 150 mg PO DAILY Qty: 30 1RF propranolol 20 mg tablet 20 mg PO BID Qty: 60 1RF lisinopril 10 mg tablet 10 mg PO DAILY Qty: 90 0RF Allergy Relief D-24hr 10-240 mg tablet extended release 24 hr See Rx Instructions .ROUTE .COMPLEX Qty: 30 1RF Dose Instruction: TAKE 1 TABLET BY MOUTH EVERY DAY Rx Instructions: TAKE 1 TABLET BY MOUTH EVERY DAY ketorolac 10 mg tablet 10 mg PO TID PRN (Reason: pain) Qty: 10 0RF ondansetron 4 mg tablet,disintegrating 4 mg PO Q8H PRN (Reason: nausea and vomiting) Qty: 10 0RF ppbrajcavy-oivecjldqcaxq-dlyf 50-325-40 mg tablet 1 tab PO Q6H PRN (Reason: headache) 7 Days Qty: 7 0RF metoclopramide HCl [Reglan] 10 mg tablet 10 mg PO Q6H PRN (Reason: nausea and vomiting) Qty: 20 0RF Discharge Orders: Discharge ED (Routine); Ordered 06/26/25 Ordered By: Delfina Grissom Referrals: Xochilt Hudson MD [Primary Care Provider, Family Practice] Discharge Diet: Usual diet Discharge Activity: Increase activity as tolerated Patient Instructions: Abuse of Alcohol (ED), Opioid Safety, Pain Management, Patient Portal & Brody Instructions Activity Restrictions/Additional Instructions: Thank you for choosing [facility] for your healthcare needs today. You have been screened and evaluated and felt safe for discharge. Health conditions do change or evolve sometimes and as such it is important that you follow up with your Primary Doctor to be re checked, 3-5 days is a general good time frame for follow up. You are always welcome to return to the ED for re assessment if your symptoms are worsening or you have new concerns Print Language: Turkish Coding Level of Care Code ED Glass Vial Filler for Allan Huertas
[2025-06-26] MEDS: ondansetron 2 mg/ML SDV 2 mL 8 MG IVP (19:11)
[2025-06-26 19:18] LABS: Hematocrit 38.8 % (36-47); Hemoglobin 12.80 g/dL (11.27-16.99); Mean Corpuscular HGB Conc 33.0 g/dL (30-55); Mean Corpuscular Hemoglobin 30.6 pg (27-33); Mean Corpuscular Volume 92.8 fl (85-98); Nucleated Red Blood Cells % 0 %; Platelet Count 347 10^3/cmm (157-399); Red Blood Count 4.18 10^6/uL (3.85-5.65); White Blood Count 6.23 10^3/uL (3.29-11.43)
[2025-06-26 20:25] LABS: Glucose Urine UA Negative (Normal); Nitrate Urine Negative (Negative); Specific Gravity, Urine 1.015 (1.005-1.030)
[2025-06-26 20:27] LABS: Add Urine Microscopic? YES
[2025-06-26 20:29] LABS: HCG Qualitative Urine. Negative (Negative)
[2025-06-26 20:32] LABS: PCP Screen Urine Negative (Negative)
[2025-06-26 20:34] LABS: Alanine Aminotransferase 12 U/L (0-33); Albumin Level 4.4 g/dL (3.5-5.2); Alcohol Level 121 mg/dL (0-10); Alkaline Phosphatase 59 U/L (35-105); Anion Gap 17.9 (5-19); Aspartate Amino Transferase 13 U/L (0-32); Blood Urea Nitrogen 11 mg/dL (6-20); Calcium 9.1 mg/dL (8.5-10.5); Carbon Dioxide 22 mmol/L (22-29); Chloride 103 mmol/L (98-107); Globulin 2.7 g/dL (1.3-4.6); Glucose 91 mg/dL (65-115); Osmolality Calculated 287 mOsm/kg (285-295); Potassium 3.9 mmol/L (3.5-5.1); Sodium 139 mmol/L (136-145); Thyroid Stimulating Hormone 0.78 uIU/mL (0.27-4.20); Total Protein 7.1 g/dL (6.6-8.7)
[2025-06-26 20:37] LABS: Acetaminophen < 5.0 ug/mL (10-30); Salicylate < 0.3 mg/dL (3-10)
[2025-06-27] VITALS: BP 120/74; PULSE 78; O2SAT 99
[2025-06-27 00:25] VITALS: BP 120/74; PULSE 78; O2SAT 99
== END 2025-06-27 00:26 | disposition home or self-care (01) ==
PROVIDERS: Emergency Provider Emergency Medicine; PCP Family Medicine
DX: F10.129 Alcohol abuse with intoxication, unspecified (principal); Y90.6 Blood alcohol level of 120-199 mg/100 ml; Z72.0 Tobacco use; I10 Essential (primary) hypertension
CPT/HCPCS: 80053; 80306; 80307; 81001; 81025; 84443; 85025; 93005; 96374; 99284; J2405; J7030

== ENCOUNTER 2025-08-09 11:49 | Emergency (ER) | payer OTHER, MEDICAID, SELFPAY ==
[2025-08-09 11:54] VITALS: BP 103/55; PULSE 73; RESP 18; TEMP 36.7; O2SAT 95; BMI 31.6
--- NOTE | 2025-08-09 11:54 | ECG_ITS ---
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
--- NOTE | 2025-08-09 11:54 | XRR_ITS ---
PROCEDURE INFORMATION: Exam: XR Chest Exam date and time: 08/09/2025 1:54 PM Age: 50 years old Clinical indication: Pain; Angina pectoris; Additional info: Chest pain TECHNIQUE: Imaging protocol: Radiologic exam of the chest. Views: 1 view. COMPARISON: CR XR chest 1V portable [id number] 05/29/2025 7:41 PM FINDINGS: Lungs: Unremarkable. No consolidation. Pleural spaces: Unremarkable. No pleural effusion. No pneumothorax. Heart/Mediastinum: Unremarkable. No cardiomegaly. Bones/joints: Unremarkable. XR/XR chest 1V portable [id number] IMPRESSION: No acute findings.
[2025-08-09 12:38] LABS: Hematocrit 33.2 % (36-47); Hemoglobin 11.10 g/dL (11.27-16.99); Mean Corpuscular HGB Conc 33.4 g/dL (30-55); Mean Corpuscular Hemoglobin 31.2 pg (27-33); Mean Corpuscular Volume 93.3 fl (85-98); Nucleated Red Blood Cells % 0 %; Platelet Count 319 10^3/cmm (157-399); Red Blood Count 3.56 10^6/uL (3.85-5.65); White Blood Count 6.63 10^3/uL (3.29-11.43)
[2025-08-09 12:56] LABS: Troponin(5th) Baseline < 6 ng/L (0-10)
[2025-08-09 13:07] LABS: Alanine Aminotransferase 11 U/L (0-33); Albumin Level 4.3 g/dL (3.5-5.2); Alkaline Phosphatase 72 U/L (35-105); Anion Gap 15.4 (5-19); Aspartate Amino Transferase 11 U/L (0-32); Blood Urea Nitrogen 14 mg/dL (6-20); Calcium 9.2 mg/dL (8.5-10.5); Carbon Dioxide 25 mmol/L (22-29); Chloride 103 mmol/L (98-107); Creatinine Clr Calc Pharmacy 121.6088; Globulin 1.8 g/dL (1.3-4.6); Glucose 104 mg/dL (65-115); NT Pro B Type Natriuretic Pept < 36 pg/mL (0-125); Osmolality Calculated 289 mOsm/kg (285-295); Potassium 4.4 mmol/L (3.5-5.1); Sodium 139 mmol/L (136-145); Total Protein 6.1 g/dL (6.6-8.7)
--- NOTE | 2025-08-09 13:15 | ED_ITS ---
HPI - Chest Pain 2 General: Chief Complaint: Chest Pain Stated Complaint: CP SOB Dizzy Time Seen by Provider: 08/09/25 13:15 History of Present Illness: 50-year-old female presents to the emerg ency room complaining [place] having chest pain and being somewhat short of breath began this morning. She has been nauseous no vomiting. Patient is sedate she states she uses Suboxone regularly. She states she has not slept for last couple days she just sleeps poorly. She has not noticed anything that exacerbates or relieves the pain in her chest. She thought maybe taking a deep breath may make it a little bit worse does not radiate into her neck arms or back. No significant past medical history. No history of any arrhythmias no history of any coronary artery disease. Associated symptoms: Deny abdominal pain, dyspnea or fever(s) Related Data Home Medications ?Medication ?Instructions ?Recorded ?Confirmed buprenorphine 8 mg-naloxone 2 mg 2 film buccal DAILY 0 02/20/25 04/01/25 sublingual film (Suboxone) aripiprazole 2 mg tablet (Abilify) 2 mg PO DAILY 04/0104/01/25 Previous Rx's ?Medication ?Instructions ?Recorded ondansetron HCl 8 mg tablet 8 mg PO Q12H #60 tabs 01/30 01/22 diazepam 10 mg tablet 10 mg PO ONCE anxiety #1 tab 04/01/25 fluticasone propionate 50 1 spray intranasal DAILY #16 grams 04/01/25 mcg/actuation nasal spray,suspension venlafaxine 150 mg 150 mg PO DAILY #30 caps capsule,extended release 24 hr (Effexor XR) lisinopril 10 mg tablet 10 mg PO DAILY #90 tabs 04/01 03/24 propranolol 20 mg tablet 20 mg PO BID #60 tabs ketorolac 10 mg tablet 10 mg PO TID PRN pain #10 ta bs 05/26/25 ondansetron 4 mg disintegrating 4 mg PO Q8H PRN nausea and 05/29/25 tablet vomiting #10 tabs vvdgwncmas-iatbthfdrzdbn-xixbxlnz 1 tab PO Q6H PRN hea dache 7 days 06/16/25 50 mg-325 mg-40 mg tablet #7 tabs metoclopramide HCl 10 mg tablet 10 mg PO Q6H PRN nause a and 06/16/25 (Reglan) vomiting #20 tabs loratadine-pseudoephedrine ER 10 See Rx Instructions . Route 06/21/25 mg-240 mg tablet,extended .COMPLEX #30 tabs [id number] (Allergy Relief D-24hr) pantoprazole 40 mg tablet,delayed 40 mg PO DAILY #30 t abs 08/09/25 release Allergies Allergy/AdvReac Type Severity Reaction Status Date / Time meperidine (From Demerol) Allergy ALGY-Difficulty Verified 04/16/25 10:12 Breathing prochlorperazine (From Allergy ALGY-Hives Verified 04/01/25 07:15 Compazine) Review of Systems 2 Const: Denies: fever(s) or chills Card: Reports: chest pain Resp: Denies: dyspnea GI: Denies: abdominal pain : Denies: dysuria, urinary frequency or urinary urgency Musc: Denies: neck pain or back pain Skin/Breast: Denies: rash PFSH ED 2 PFSH: Medical History Migraine, chronic, without aura on Fioricet for years Hypertension Hx of substance abuse opioids; last use 2010; goes to [facility] for Subox[facility] Bilateral primary osteoarthritis of knee reports had injections; saw [facility], had MRI was told needed knee replacement Family history of breast cancer in first degree relative Nicotine dependence, cigarettes, with other nicotine-induced disorders Pituitary tumor 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20, treated w/ [facility]odel; went away; reports symptoms returned Depression with anxiety Post traumatic stress disorder (PTSD) Bipolar 1 disorder Surgical History History of cholecystectomy History of partial hysterectomy ovaries remaining; done for endometriosis and precancerous cells of cervix Hx of section X 2 History of carpal tunnel surgery of right wrist Family History Father Pancreatic cancer Mother Parkinson disease Heart disease Sister Breast cancer Social History Smoking and tobacco/nicotine status: current every day tobacco/nicotine user Second hand smoke exposure: No Alcohol intake: never Substance/Drug Use: former Date of last use: 2010 Former substance use details: opiates; 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 Physical Exam 2 Const: GENERAL APPEARANCE: cooperative ORIENTATION/CONSCIOUSNESS: Yes awake, Yes oriented to person, Yes oriented to place and Yes oriented to time HENMT: COMMON NORMALS: normocephalic, atraumatic and hearing grossly normal bilaterally HEAD & SCALP: normocephalic and atraumatic Resp: COMMON NORMALS: normal respiratory effort, No retractions, No use of accessory muscles and clear to auscultation bilaterally AUSCULTATION: clear to auscultation bilaterally Cardio: COMMON NORMALS: regular rate, regular rhythm and No murmurs present (Cardio) RATE: regular rate RHYTHM: regular rhythm GI: COMMON NORMALS: Soft to palpation and No hepatosplenomegaly present A USCULTATION: Yes normoactive bowel sounds PALPATION: Yes Soft to palpation, No Tenderness to palpation present (GI), No Guarding due to palpation present (GI) and Yes No hepatosplenomegaly present Extremity: COMMON NORMALS: normal to inspection, capillary refill normal, no clubbing, cyanosis or edema, no calf tenderness and no pedal edema Neuro: SENSORIUM/ORIENTATION: Yes oriented to person, Yes oriented to place and Yes oriented to time Skin: COMMON NORMALS: no rashes or lesions noted GENERAL SKIN EXAM: no rashes or lesions noted Course 2 Vital Signs: Vital signs: Vital Signs Temperature 98.1 F 08/09/25 11:54 Pulse Rate 68 08/09/25 14:58 Respiratory Rate 17 08/09/25 14:35 Blood Pressure 109/61 08/09/25 14:58 Pulse Oximetry 99 08/09/25 14:58 Oxygen Delivery Me thod Room Air 08/09/25 13:52 MDM - Chest Pain Medical Decision Making Troponins are undetectable. EKG is normal. Chest x-ray did not show any acute abnormalities. Patient had complete resolution of her symptoms with GI cocktail discharge patient home on a PPI. Continue current medications she is not currently taking ketorolac anymore she should avoid this follow-up with her primary care doctor Medical Records I reviewed the patient's medical records. Lab Data I reviewed the patient's lab results. 08/09/25 12:08/09/25 12: Radiology Impressions Chest X-Ray 08/09/25 11:54 IMPRESSION: No acute findings. Laboratory Results WBC 6.63 10^3/uL (3.29-11.43) 08/09/25 12: RBC 3.56 10^6/uL (3.85-5.65) L 08/09/25 12: Hgb 11.10 g/dL (11.27-16.99) L 08/09/25 12: Hct 33.2 % (36-47) L 08/09/25 12: MCV 93.3 fl (85-98) 08/09/25 12: MCH 31.2 pg (27-33) 08/09/25 12: MCHC 33.4 g/dL (30-55) 08/09/25 12: RDW 12.3 % (12.1-15.1) 08/09/25 12: Plt Count 319 10^3/cmm (157-399) 08/09/25 12: MPV 10.7 fL (7.4-10.4) H 08/09/25 12: Neut % (Auto) 43.3 % 08/09/25 12: Lymph % (Auto) 42.7 % 08/09/25 12: [place] % (Auto) 6.3 % 08/09/25 12: Eos % (Auto) 6.6 % 08/09/25 12: Baso % (Auto) 0.9 % 08/09/25 12: Neut # (Auto) 2.87 10^3/uL (1.8-7.7) 08/09/25 12: Lymph # (Auto) 2.8 10^3/uL (0.8-4.8) 08/09/25 12: [place] # (Auto) 0.4 10^3/uL (0.2-0.9) 08/09/25 12: Eos # (Auto) 0.4 10^3/uL (0.0-0.8) 08/09/25 12: Baso # (Auto) 0.1 10^3/uL (0.0-0.1) 08/09/25 12:28 Nucleated RBC % (auto) 0 % 08/09/25 12:28 Nucleated RBCs # 0.0 /100WBC 08/09/25 12:28 D-Dimer 0.36 ug/mLFEU (0-0.59) 08/09/25 12:28 Sodium 139 mmol/L (136-145) 08/09/25 12:28 Potassium 4.4 mmol/L (3.5-5.1) 08/09/25 12:28 Chloride 103 mmol/L (98-107) 08/09/25 12: Carbon Dioxide 25 mmol/L (22-29) 08/09/25 12:28 Anion Gap 15.4 (5-19) 08/09/25 12:28 BUN 14 mg/dL (6-20) 08/09/25 12:28 Creatinine 0.6 mg/dL (0.5-0.9) 08/09/25 12:28 GFR Calculation 105.8 mL/min (90-130) 08/09/25 12:28 Glucose 104 mg/dL (65-115) 08/09/25 12:28 Calculated Osmolality 289 mOsm/kg (285-295) 08/09/25 12:28 Calcium 9.2 mg/dL (8.5-10.5) 08/09/25 12:28 Total Bilirubin 0.2 mg/dL (0.15-1.2) 08/09/25 12:28 AST 11 U/L (0-32) 08/09/25 12:28 ALT 11 U/L (0-33) 08/09/25 12:28 Alkaline Phosphatase 72 U/L (35-105) 08/09/25 12:28 Troponin T Baseline < 6 ng/L (0-10) 08/09/25 12:28 Troponin T 120 Minute < 6.0 ng/L (0-10) 08/09/25 14:13 Delta Troponin T 0 ABS# (0-10) 08/09/25 14:13 NT-Pro-B Natriuret Pep < 36 pg/mL (0-125) 08/09/25 12:28 Total Protein 6.1 g/dL (6.6-8.7) L 08/09/25 12:28 Albumin 4.3 g/dL (3.5-5.2) 08/09/25 12:28 Globulin 1.8 g/dL (1.3-4.6) 08/09/25 12:28 All radiology interpretation(s) finalized by discharge EKG Data EKG 1: I personally reviewed and interpreted this EKG as follows: EKG interpretation date: 08/09/25 Prior EKG tracings: available for review Interpretation: EKG 08/09/2024 1157 sinus rhythm rate of 72. 121 QTc 422 no acute EKG changes noted compared to previous EKG 06/26/2025 no changes EKG 2: EKG interpretation date: 08/09/25 Prior EKG tracings: available for review Interpretation: EKG 08/09/2025 1433. Sinus bradycardia rate of 49 parable [address] changes noted compared to EKG done earlier today. Discharge Plan Discharge Patient Disposition: Home Clinical Impression: Chest pain due to GERD Condition: Stable Prescriptions: New pantoprazole 40 mg tablet,delayed release (DR/EC) 40 mg PO DAILY Qty: 30 0RF No Action buprenorphine-naloxone [Suboxone] 8-2 mg film 2 film buccal DAILY Rx Instructions: place 1 film on inside of (each) cheek ondansetron HCl 8 mg tablet 8 mg PO Q12H Qty: 60 1RF aripiprazole [Abilify] 2 mg tablet 2 mg PO DAILY diazepam 10 mg tablet 10 mg PO ONCE Qty: 1 0RF fluticasone propionate 50 mcg/actuation spray,suspension 1 spray intranasal DAILY Qty: 16 5RF Rx Instructions: administer into each nostril venlafaxine [Effexor XR] 150 mg capsule,extended release 24hr 150 mg PO DAILY Qty: 30 1RF propranolol 20 mg tablet 20 mg PO BID Qty: 60 1RF lisinopril 10 mg tablet 10 mg PO DAILY Qty: 90 0RF Allergy Relief D-24hr 10-240 mg tablet extended release 24 hr See Rx Instructions .ROUTE .COMPLEX Qty: 30 1RF Dose Instruction: TAKE 1 TABLET BY MOUTH EVERY DAY Rx Instructions: TAKE 1 TABLET BY MOUTH EVERY DAY ketorolac 10 mg tablet 10 mg PO TID PRN (Reason: pain) Qty: 10 0RF ondansetron 4 mg tablet,disintegrating 4 mg PO Q8H PRN (Reason: nausea and vomiting) Qty: 10 0RF iamoznsttg-bhhcdfldhojmu-sefs 50-325-40 mg tablet 1 tab PO Q6H PRN (Reason: headache) 7 Days Qty: 7 0RF metoclopramide HCl [Reglan] 10 mg tablet 10 mg PO Q6H PRN (Reason: nausea and vomiting) Qty: 20 0RF Discharge Orders: Discharge ED (Routine); Ordered 08/09/25 Ordered By: David Nair Discharge Diet: As Directed Discharge Activity: Increase activity as tolerated Patient Instructions: Diet for Stomach Ulcers and Gastritis (ED), GERD (Gastroesophageal Reflux Disease) (ED), Opioid Safety, Pain Management, Patient Portal & Brody Instructions Activity Restrictions/Additional Instructions: Thank you for choosing [facility] for your healthcare needs today. It is very important that you follow up as instructed or that you return to the Emergency Department should you have concerns or if your condition changes or worsens in any way. Emergency department visits are focused on emergent conditions, in some cases you may require further evaluation on an outpatient basis. You were seen in the emergency room once chest discomfort. Cardiac enzymes and EKG do not show any significant abnormality your symptoms improved with the oral medication given suspect your symptoms are due to reflux recommend you start on pantoprazole 1 tablet daily follow dietary recommendations given the time of discharge and follow-up with your primary care doctor (Please note that included in your discharge packet is information concerning opioid safety and pain management. This information is given to all patients were discharged from the ER regardless of their discharge diagnosis or the medicines they usually take or are prescribed.) Stand Alone Forms: Work/School Release Print Language: Cymraes Coding Level of Care Code ED Front Attendant for Chg Fwd Heart Score HEART Score Components History: Slightly Suspicous EKG: Normal Age: 45-64 yrs Risk Factors: No Risk Factors Known Troponin: Baseline Trop <16 ng/L HEART Score RESULT HEART Score: 1
[2025-08-09] MEDS: lidocaine 2% viscous 15 ML, aluminum-mag hydrox-simethicon 30 ML, sucralfate oral liq 1 GM PO (13:47)
[2025-08-09 13:52] VITALS: BP 118/78; PULSE 61; RESP 18
--- NOTE | 2025-08-09 13:54 | ECG_ITS ---
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
[2025-08-09 14:35] VITALS: BP 108/52; PULSE 52; RESP 17; O2SAT 99
[2025-08-09 14:37] LABS: Troponin 5 2HR < 6.0 ng/L (0-10); Troponin 5 2HR Delta 0 ABS# (0-10)
[2025-08-09 14:58] VITALS: BP 109/61; PULSE 68; O2SAT 99
== END 2025-08-09 14:59 | disposition home or self-care (01) ==
PROVIDERS: Physician Assistant; Emergency Provider Family Medicine
DX: R07.9 Chest pain, unspecified (principal); K21.9 Gastro-esophageal reflux disease without esophagitis; I10 Essential (primary) hypertension
CPT/HCPCS: 36415; 71045; 80053; 83880; 84484; 85025; 85378; 93005; 99285; J9999

== ENCOUNTER 2025-08-26 16:05 | Emergency (ER) | payer MEDICAID, SELFPAY ==
--- OUTSIDE RECORDS SUMMARY | 2025-08-26 16:13 | XMS_ITS | Clinical Summary ---
Author Organization [facility] [employer] Address [address] [place] [address] Care Team Providers Care Mobile Marketing Manager Name Role Phone Unavailable Primary Care [...] (30-65) 2005 HPV/Cotest 2005 Lipid Panel 2015 Pneumococcal Vaccine 50+ (1 of 1 - PCV) 2025 Zoster Vaccine (1 of 2) 2025 COVID-19 Vaccine (1 - 2023-2 5 season) 2025 Influenza Series (#1) 2025 Meningococcal B Vaccine Aged Out No l onger eligible based on patient's age to complete this topic Insurance [address] [place] [id number] [place] MEDICAID-NO REFERRAL REQ
--- OUTSIDE RECORDS SUMMARY | 2025-08-26 16:13 | XMS_ITS | Encounter Summary ---
Author Organization [facility] [employer] Address [address] [place] [address] Care Team Providers Care Talent Acquisition Associate Name Role Phone Unavailable Primary Care Provider Unavailabl e Encounter Details Date Type Department Care Team (Latest Contact Info) Description 03/06/2024 [place] [address] Rubin Hernandez MD [address] [place] [address] Benign neoplasm of pituitary gland (HCC) (Primary [...]
--- OUTSIDE RECORDS SUMMARY | 2025-08-26 16:13 | XMS_ITS | Encounter Summary ---
Author Organization [facility] [employer] Address [address] [place] [address] Care Team Providers Care Tufting Machine Fixer Name Role Phone Unavailable Primary Care Provider Unavailabl e Encounter Details Date Type Department Care Team ([facility] st Contact Info) Description 05/04/2024 Outside Records [facility] [address] [facility] [place] [address] Interface, Provider Social History Tobacco Use Types [...]
--- OUTSIDE RECORDS SUMMARY | 2025-08-26 16:13 | XMS_ITS | Patient Health Record ---
Author Organization [facility] Address [address] [facility] [address] [place] [address] Support Name Relationship Address Phone Lee Pastor Emergency Contact [address] [place] [address] Aure Valladares Guarantor Unknown [phone] Allergies Allergen (clinical drug ingredient) Drug/Non Drug Allergy documented on EMR Reaction Allergy Type Onset Date Status meperidine Demerol hives Drug Allergy Active Reason For Referral No Information Medications Medication SIG (Take, Route, Frequency, Duration) Notes Start Date End Date Status cyclobenzaprine 10 mg tablet 1 tab(s) orally 3 times a day; Duration: 5 days 09/15/2023 Not-Taking lisinopril 10 mg tablet 1 tab(s) orally once a day Unknown cyclobenzaprine 10 mg tablet 1 tab(s) orally 3 times a day; Duration: 5 days 09/10/2023 Not-Taking ibuprofen 800 mg tablet 1 tab(s) orally every 8 hours as needed for pain; Duration: 5 days 09/15/2023 Not-Taking Cyclobenzaprine Hydrochloride 10 mg tablet 1 tab(s) orally 3 times a day as needed 11/30/2023 Active Ketorolac Tromethamine 10 mg tablet 1 tab(s) orally 4 times a day; Duration: 5 days 11/30/2023 Active Lasix 20 mg tablet 1 tab(s) orally twic e daily 10/16/2023 Not-Taking ibuprofen 800 mg tablet 1 tab(s) orally every 8 hours 10/16/2023 Not-Taking Social History Social History Social History Social Info Question Answer Notes Caffeine Use: How many servings of caffeine do you drink daily? 1 to 2 servings Tobacco Use Patient is a Current Smoker 1/2 PPD since age 30 Patient asked on 11/30/2023 Additional Details Category Social Info Options Details Social History Hx of Tobacco Use: yes Problems Problem Type SNOMED Code ICD Code Onset Dates Problem Status W/U Status Risk Notes Problem Sciatica (36596441) Lumbago with sciatica, right side (M54.41) Active confirmed Problem Sciatica (92273503) Lumbago with sciatica, left side (M54.42) Active confirmed Problem Primary hypertension (95278664) Primary hypertension (I10) Active confirmed Plan Of Treatment No Information Medications Administered Medication Instructions Date of Administration Dosage Notes Toradol 15mg/unit (use this one) 09/10/2023 60 mg Celestone/betamethasone acet ate (use this one)-3mg 11/30/2023 12 mg Medical (General) History Surgical History Surgery Date(Month/Year) hysterectomy 2002 c section 2002 gallbladder removal 2006
[2025-08-26 16:15] VITALS: BP 135/80; PULSE 83; RESP 14; TEMP 36.7; O2SAT 99; BMI 31.6
[2025-08-26 16:18] VITALS: BP 147/94; PULSE 89; O2SAT 100
--- NOTE | 2025-08-26 16:19 | ED_ITS ---
HPI - Back Pain/Injury General: Chief Complaint: Back Pain/Injury Stated Complaint: low back pain Time Seen by Provider: 08/26/25 16:21 Source: patient Mode of arrival: ambulatory Limitations: no limitations History of Present Illness: Patient is a 50-year-old female presents to ED today with complaint of lower back pain. She states she has chronic lower back pain that will sometimes flareup. Patient states a few days ago while at work she lifted something heavy and felt something . She states she knows she is not supposed to be lifting. She states she has flared her back before with identical symptoms. She is not having any radicular pain down into her buttocks or legs. She does take Suboxone for chronic back pain. She is not complaining of saddle anesthesia or bowel or bladder dysfunction. She is ambulatory here without difficulty or assistance. No fevers or systemic symptoms. MD elicited complaint: back pain Pertinent past history: prior back pain Onset (ago): day(s) Timing: constant Severity: severe Similar Symptoms Previously: Yes Location: lumbar spine Radiation: none Exacerbating factors: movement Relieving factors: none Context: while lifting Associated symptoms: Reports no associated symptoms; Deny abdominal pain, chills, difficulty walking, dysuria, fatigue, fever(s) or hematuria Treatments prior to arrival: prescription analgesics (Patient chronically takes Suboxone) Related Data Home Medications ?Medication ?Instructions ?Recorded ?Confirmed buprenorphine 8 mg-naloxone 2 mg 2 film buccal DAILY 0 02/20/25 04/01/25 sublingual film (Suboxone) aripiprazole 2 mg tablet (Abilify) 2 mg PO DAILY 04/0104/01/25 Previous Rx's ?Medication ?Instructions ?Recorded ondansetron HCl 8 mg tablet 8 mg PO Q12H #60 tabs 01/30 01/22 diazepam 10 mg tablet 10 mg PO ONCE anxiety #1 tab 04/01/25 fluticasone propionate 50 1 spray intranasal DAILY #16 grams 04/01/25 mcg/actuation nasal spray,suspension venlafaxine 150 mg 150 mg PO DAILY #30 caps capsule,extended release 24 hr (Effexor XR) lisinopril 10 mg tablet 10 mg PO DAILY #90 tabs 04/01 03/24 propranolol 20 mg tablet 20 mg PO BID #60 tabs ondansetron 4 mg disintegrating 4 mg PO Q8H PRN nausea and 05/29/25 tablet vomiting #10 tabs kdneybixne-pvfhfydowwmvv-pxibrqqy 1 tab PO Q6H PRN hea dache 7 days 06/16/25 50 mg-325 mg-40 mg tablet #7 tabs metoclopramide HCl 10 mg tablet 10 mg PO Q6H PRN nause a and 06/16/25 (Reglan) vomiting #20 tabs pantoprazole 40 mg tablet,delayed 40 mg PO DAILY #30 t abs 08/09/25 release loratadine-pseudoephedrine ER 10 See Rx Instructions . Route 08/25/25 mg-240 mg tablet,extended .COMPLEX #30 tabs [id number] (Allergy Relief D-24hr) ibuprofen 800 mg tablet 800 mg PO Q8H PRN pain #20 t abs 08/26/25 ketorolac 10 mg tablet 10 mg PO TID PRN pain #6 tab s 08/26/25 methocarbamol 500 mg tablet 1,000 mg (2 x 500 mg) PO Q 8H #30 08/26/25 tabs methylprednisolone 4 mg tablets in See Rx Instructions PO .COMPLEX 08/26/25 a dose pack (Medrol (Miguel Angel)) #21 ea Allergies Allergy/AdvReac Type Severity Reaction Status Date / Time meperidine (From Demerol) Allergy ALGY-Difficulty Verified 08/26/25 16:18 Breathing prochlorperazine (From Allergy ALGY-Hives Verified 08/26/25 16:18 Compazine) Review of Systems Const: Denies: fever(s), chills, body aches, fatigue or malaise Card: Denies: chest pain Resp: Denies: dyspnea GI: Denies: abdominal pain : Denies: flank pain, dysuria or hematuria Musc: Reports: back pain; Denies: neck pain, extremity pain, extremity swelling, joint pain, joint swelling or joint redness Skin/Breast: Denies: rash Neuro: Denies: headache(s), numbness in extremities, weakness in extremities, sensory changes or difficulty walking PFS ED PFSH: Medical History Migraine, chronic, without aura on Fioricet for years Hypertension Hx of substance abuse opioids; last use 2010; goes to [facility] for Suboxone Bilateral primary osteoarthritis of knee reports had injections; saw [place] [facility], had MRI was told needed knee replacement Family history of breast cancer in first degree relative Nicotine dependence, cigarettes, with other nicotine-induced disorders Pituitary tumor 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20, treated w/ parlodel; went away; reports symptoms returned Depression with anxiety Post traumatic stress disorder (PTSD) Bipolar 1 disorder Surgical History History of cholecystectomy History of partial hysterectomy ovaries remaining; done for endometriosis and precancerous cells of cervix Hx of section X 2 History of carpal tunnel surgery of right wrist Family History Father Pancreatic cancer Mother Parkinson disease Heart disease Sister Breast cancer Social History Smoking and tobacco/nicotine status: current every day tobacco/nicotine user Second hand smoke exposure: No Alcohol intake: never Substance/Drug Use: former Date of last use: 2010 Former substance use details: opiates; goes to [facility] for suboxone Household members: other Details: living with mother currently Marital status: Legally Number of children: 3 Highest education level completed: Some College, No Degree Current occupational status: unemployed 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 Physical Exam Const: COMMON NORMALS: no acute distress, average body habitus, patient oriented x3, no limitations, healthy appearing, alert and well nourished GENERAL APPEARANCE: cooperative Neck/C-Spine: COMMON NORMALS: full ROM and no meningeal signs Resp: COMMON NORMALS: normal respiratory effort and clear to auscultation bilaterally AUSCULTATION: clear to auscultation bilaterally Cardio: COMMON NORMALS: regular rate and regular rhythm RATE: regular rate RHYTHM: regular rhythm GI: COMMON NORMALS: non-tender and no masses : COMMON NORMALS: Yes no CVA tenderness BLADDER/KIDNEY EXAM: Yes no CVA tenderness Back/Pelvis: COMMON NORMALS: no CVA tenderness and straight leg raise negative bilaterally THORACIC SPINE/UPPER BACK: Yes normal to inspection and No thoracic spinal tenderness LUMBAR SPINE/LOWER BACK: Yes normal to inspection, Yes lumbar spinal tenderness, Yes paraspinal muscle tenderness and No paraspinal muscle spasm PELVIS: Yes buttocks normal and No sciatic notch tenderness SACROILIAC JOINTS: Yes SI joints normal SACRUM: no tenderness COCCYX: no tenderness OTHER: pain across lower back Extremity: COMMON NORMALS: normal to inspection, full ROM, capillary refill normal, no joint enlargement, no clubbing, cyanosis or edema, no calf tenderness and no pedal edema GENERAL: Yes normal exam except as noted Neuro: COMMON NORMALS: patient oriented x3, moves all extremities, no focal motor deficits, no sensory deficits noted and gait normal SENSORIUM/ORIENTATION: Yes alert MENINGEAL SIGNS: Yes no meningeal signs GAIT: Yes Normal gait present MOTOR EXAM: 5/5 motor strength present throughout Skin: COMMON NORMALS: no rashes or lesions noted GENERAL SKIN EXAM: no rashes or lesions noted Course Vital Signs: Vital signs: Vital Signs Temperature 98.1 F 08/26/25 16:15 Pulse Rate 89 08/26/25 16:18 Respiratory Rate 14 08/26/25 16:15 Blood Pressure 147/94 08/26/25 16:18 Pulse Oximetry 100 08/26/25 16:18 Oxygen Delivery Me thod Room Air 08/26/25 16:18 MDM - Back Pain/Injury Medical Decision Making Patient presents with low back pain. Differential includes life-threatening and benign etiologies such as musculoskeletal back sprain/strain, disc herniation, lumbar radiculopathy, cauda equina, central cord compression, discitis/epidural abscess, AAA, shingles, among others. DATA: History obtained from patient. Prior records reviewed. Labs ordered/reviewed: none. Imaging ordered/reviewed: imaging was not needed today based on history of acute on chronic low back pain without red flag signs/symptoms. TREATMENT: In the ED, patient received IM Toradol and Dexamethasone. Response: reports improvement. IMPRESSION: Working diagnosis is low back strain/sprain. DISPOSITION: Patient discharged in good/stable condition. Prescriptions: requested oral toradol as this has helped in the past-discussed using this only for two days-requested Ibuprofen she can use following this-also providing steroids and muscle relaxers. Follow-up recommending with PCP in 1-2 weeks if symptom are not improving. Patient advised on strict return precautions and verbalized understanding. Differential Diagnosis Likely lumbar radiculopathy, sciatica, strain of lumbar region and discitis Medical Records I reviewed the patient's medical records. No radiology studies performed this visit Discharge Plan Discharge Patient Disposition: Home Clinical Impression: Low back strain Qualifiers: Encounter type: initial encounter Qualified Code(s): S39.012A - Strain of muscle, fascia and tendon of lower back, initial encounter Condition: Stable Prescriptions: New methocarbamol 500 mg tablet 1,000 mg PO Q8H Qty: 30 0RF methylprednisolone [Medrol (Miguel Angel)] 4 mg tablets,dose pack See Rx Instructions .ROUTE .COMPLEX Qty: 21 0RF Rx Instructions: orally per package directions ibuprofen 800 mg tablet 800 mg PO Q8H PRN (Reason: pain) Qty: 20 0RF Continued ketorolac 10 mg tablet 10 mg PO TID PRN (Reason: pain) Qty: 6 0RF No Action buprenorphine-naloxone [Suboxone] 8-2 mg film 2 film buccal DAILY Rx Instructions: place 1 film on inside of (each) cheek ondansetron HCl 8 mg tablet 8 mg PO Q12H Qty: 60 1RF aripiprazole [Abilify] 2 mg tablet 2 mg PO DAILY diazepam 10 mg tablet 10 mg PO ONCE Qty: 1 0RF fluticasone propionate 50 mcg/actuation spray,suspension 1 spray intranasal DAILY Qty: 16 5RF Rx Instructions: administer into each nostril venlafaxine [Effexor XR] 150 mg capsule,extended release 24hr 150 mg PO DAILY Qty: 30 1RF propranolol 20 mg tablet 20 mg PO BID Qty: 60 1RF lisinopril 10 mg tablet 10 mg PO DAILY Qty: 90 0RF Allergy Relief D-24hr 10-240 mg tablet extended release 24 hr See Rx Instructions .ROUTE .COMPLEX Qty: 30 1RF Dose Instruction: TAKE 1 TABLET BY MOUTH EVERY DAY Rx Instructions: TAKE 1 TABLET BY MOUTH EVERY DAY pantoprazole 40 mg tablet,delayed release (DR/EC) 40 mg PO DAILY Qty: 30 0RF ondansetron 4 mg tablet,disintegrating 4 mg PO Q8H PRN (Reason: nausea and vomiting) Qty: 10 0RF kcbxjbwxgk-ekxlusfoxlcqn-wbhv 50-325-40 mg tablet 1 tab PO Q6H PRN (Reason: headache) 7 Days Qty: 7 0RF metoclopramide HCl [Reglan] 10 mg tablet 10 mg PO Q6H PRN (Reason: nausea and vomiting) Qty: 20 0RF Discharge Orders: Discharge ED (Routine); Ordered 08/26/25 Ordered By: Geetha Patel Patient Instructions: Patient Portal & Brody Instructions Activity Restrictions/Additional Instructions: As we discussed, you may take the oral Toradol 3 times daily over the next 2 days. We discussed not taking this with other zwju-tbe-okisdlv anti- inflammatories or the Ibuprofen that was prescribed to you as well. Once you are finished with the Toradol, you may take the Ibuprofen as prescribed. Make sure you are taking all of these medications with food. Print Language: Mongolian Coding Level of Care Code ED Detonator Maker for Allan Huertas
[2025-08-26 17:22] VITALS: BP 133/77; PULSE 82; O2SAT 98
== END 2025-08-26 17:28 | disposition home or self-care (01) ==
PROVIDERS: Emergency Provider Physician Assistant
DX: S39.012A Strain of muscle, fascia and tendon of lower back, initial encounter (principal); Z72.0 Tobacco use; I10 Essential (primary) hypertension; X50.0XXA Overexertion from strenuous movement or load, initial encounter
CPT/HCPCS: 96372; 99284; J1100; J1885

== ENCOUNTER 2025-09-05 13:15 | Emergency (ER) | payer MEDICAID, SELFPAY ==
--- NOTE | 2025-09-05 13:11 | XRR_ITS ---
PROCEDURE INFORMATION: Exam: XR Chest Exam date and time: 09/05/2025 1:37 PM Age: 50 years old Clinical indication: Pain; Angina pectoris; Additional info: Chest pain TECHNIQUE: Imaging protocol: Radiologic exam of the chest. Views: 1 view. COMPARISON: CR XR chest 1V portable [id number] 08/09/2025 1:54 PM FINDINGS: Lungs: Unremarkable. No consolidation. Pleural spaces: Unremarkable. No pleural effusion. No pneumothorax. Heart/Mediastinum: Unremarkable. No cardiomegaly. Bones/joints: Unremarkable. XR/XR chest 1V portable [id number] IMPRESSION: No acute findings.
--- NOTE | 2025-09-05 13:11 | ECG_ITS ---
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 Measurements Intervals [place] Rate: 74 P: 41 VT: 150 QRS: 16 QRSD: 94 T: 10 QT: 441 QTc: 491 Interpretive Statements SINUS RHYTHM WITH SINUS ARRHYTHMIA Compared to ECG 08/09/2025 14:33:11 Sinus bradycardia no longer present T-wave abnormality no longer present Electronically Signed On 09-07-2025 13:01:31 COATER HELPER by Saumya Treadwell M.D. [email or web address]
[2025-09-05 13:17] VITALS: BP 130/67; PULSE 68; RESP 18; TEMP 36.4; O2SAT 99
--- OUTSIDE RECORDS SUMMARY | 2025-09-05 13:19 | XMS_ITS | Encounter Summary ---
Author Organization [facility] [employer] Address [address] [place] [address] Care Team Providers Care Oil Rig Roughneck Name Role Phone Unavailable Primary Care Provider Unavailabl e Encounter Details Date Type Department Care Team (Latest Contact Info) Description 03/06/2024 [place] [address] Rubin Hernandez MD [address] [place] [address] Benign neoplasm of pituitary gland (HCC) (Primary [...]
--- OUTSIDE RECORDS SUMMARY | 2025-09-05 13:19 | XMS_ITS | Patient Health Record ---
Author Organization [facility] Address [address] [facility] [address] [place] [address] Support Name Relationship Address Phone Lee Pastor Emergency Contact [address] [place] [address] Aure Valladares Guarantor Unknown [phone] Allergies Allergen (clinical drug ingredient) Drug/Non Drug [...] Status W/U Status Risk Notes Problem Sciatica (06644716) Lumbago with sciatica, right side (M54.41) Active confirmed Problem Sciatica (40067712) Lumbago with sciatica, left side (M54.42) Active confirmed Problem Primary hypertension (44722838) Primary hypertension (I10) Active confirmed Plan Of Treatment No Information Medications Administered Medication Instructions Date of Administration Dosage Notes Toradol 15mg/unit (use this one) 09/10/2023 60 mg Celestone/betamethasone acet ate (use this one)-3mg 11/30/2023 12 mg Medical (General) History Surgical History Surgery Date(Month/Year) hysterectomy 2002 c section 2002 gallbladder removal 2006
--- OUTSIDE RECORDS SUMMARY | 2025-09-05 13:20 | XMS_ITS | Encounter Summary ---
Author Organization [facility] [employer] Address [address] [place] [address] Care Team Providers Care Slat Twister Name Role Phone Unavailable Primary Care Provider Unavailabl e Encounter Details Date Type Department Care Team ([facility] st Contact Info) Description 05/04/2024 Outside Records [facility] [address] [place] [address] Interface, Provider Social History Tobacco Use Types [...]
--- OUTSIDE RECORDS SUMMARY | 2025-09-05 13:20 | XMS_ITS | Clinical Summary ---
Author Organization [facility] [employer] Address [address] [place] [address] Care Team Providers Care Microsoft Dynamics Consultant Name Role Phone Unavailable Primary Care Provider [...] this topic Insurance [address] [place] [id number] [place] MEDICA[place]-NO REFERRAL REQ
--- NOTE | 2025-09-05 13:24 | W.ED.CHESTPA ---
HPI - Chest Pain General: Chief Complaint: Chest Pain Stated Complaint: chest pain History of Present Illness: 50-year-old female with a history of substance abuse now on chronic Suboxone therapy, PTSD, bipolar disorder, nicotine dependence and hypertension who presents to the emergency room with chest pain. This started an hour or so ago. 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 She describes central chest pain that is sharp. She is crying at the time I see her. No lower extremity swelling. No abdominal pain. No nausea or vomiting. Related Data Home Medications ?Medication ?Instructions ?Recorded ?Confirmed buprenorphine 8 mg-naloxone 2 mg 2 film buccal DAILY 02/20/25 09/05/25 sublingual film (Suboxone) aripiprazole 2 mg tablet (Abilify) 2 mg PO DAILY 04/01/25 09/05/25 fluticasone propionate 50 1 spray intranasal DAILY PRN 09/05/25 09/05/25 mcg/actuation nasal allergies spray,suspension loratadine-pseudoephedrine ER 10 1 tab PO DAILY 09/05/25 09/05/25 mg-240 mg tablet,extended [id number] (Allergy Relief D-24hr) ondansetron 8 mg disintegrating 8 mg PO DAILY PRN Nausea 09/05/25 09/05/25 tablet propranolol 10 mg tablet 10 mg PO BID 09/05/25 09/05/25 Previous Rx's ?Medication ?Instructions ?Recorded lisinopril 10 mg tablet 10 mg PO DAILY #90 tabs 04/24/25 lrdlpjqmkr-gkgoqpvpuymqr-qybzsjty 1 tab PO Q6H PRN headache 7 days 06/16/25 50 mg-325 mg-40 mg tablet #7 tabs pantoprazole 40 mg tablet,delayed 40 mg PO DAILY #30 tabs 08/09/25 release ibuprofen 800 mg tablet 800 mg PO Q8H PRN pain #20 tabs 08/26/25 methocarbamol 500 mg tablet 1,000 mg (2 x 500 mg) PO Q8H #30 08/26/25 tabs Allergies Allergy/AdvReac Type Severity Reaction Status Date / Time meperidine (From Demerol) Allergy ALGY-Difficulty Verified 08/26/25 16:18 Breathing prochlorperazine (From Allergy ALGY-Hives Verified 08/26/25 16:18 Compazine) Review of Systems Narrative: Constitutional symptoms: Negative except as documented in HPI. Skin symptoms: Negative except as documented in HPI. Eye symptoms: Negative except as documented in HPI. ENMT symptoms: Negative except as documented in HPI. Respiratory symptoms: Negative except as documented in HPI. Cardiovascular symptoms: Negative except as documented in HPI. Gastrointestinal symptoms: Negative except as documented in HPI. Genitourinary symptoms: Negative except as documented in HPI. Musculoskeletal symptoms: Negative except as documented in HPI. Neurologic symptoms: Negative except as documented in HPI. Psychiatric symptoms: Negative except as documented in HPI. Endocrine symptoms: Negative except as documented in HPI. 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20, treated w/ parlodel; went away; reports symptoms returned Depression with anxiety Post traumatic stress disorder (PTSD) Bipolar 1 disorder Surgical History History of cholecystectomy History of partial hysterectomy ovaries remaining; done for endometriosis and precancerous cells of cervix Hx of section X 2 History of carpal tunnel surgery of right wrist Family History Father Pancreatic cancer Mother Parkinson disease Heart disease Sister Breast cancer Social History Smoking and tobacco/nicotine status: current every day tobacco/nicotine user Second hand smoke exposure: No Alcohol intake: never Substance/Drug Use: former Date of last use: 2010 Former substance use details: opiates; goes to [facility] for suboxone Household members: other Details: living with mother currently Marital status: Legally Number of children: 3 Highest education level completed: Some College, No Degree Current occupational status: unemployed 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 Skin: Warm, dry. Head: Normocephalic, atraumatic. Neck: Supple, trachea midline. Eye: Extraocular movements are intact. Ears, nose, mouth and throat: mucosa moist. Cardiovascular: Regular, Normal peripheral perfusion. Respiratory: Lungs are clear to auscultation, respirations are non-labored, breath sounds are equal, Symmetrical chest wall expansion. Gastrointestinal: Soft, Nontender, Non distended Musculoskeletal: Normal ROM, no deformity. Neurological: Alert and oriented, No focal neurological deficit observed. Psychiatric: Cooperative, appropriate mood & affect. Course Vital Signs: Vital signs: Vital Signs Temperature 97.5 F L 09/05/25 13:17 Pulse Rate 71 09/05/25 16:00 Respiratory Rate 18 09/05/25 13:17 Blood Pressure 100/49 09/05/25 16:00 Pulse Oximetry 95 09/05/25 16:00 Oxygen Delivery Me thod Room Air 09/05/25 16:00 MDM - Chest Pain Medical Decision Making Medical decision making: Patient's reason for coming to the emergency room Social determinants I reviewed the patient's medical record. 50-year-old female with a history of substance abuse now on chronic Suboxone therapy, PTSD, bipolar disorder, nicotine dependence and hypertension I reviewed the patient's current home meds Alternate historians: Differential diagnosis for patient with chest pain includes but is not limited to and based on the above HPI, review of systems and physical exam: Pneumonia. unstable angina. angina. Acute coronary syndrome / [place]. Pulmonary embolism. Costochondritis / musculoskeletal. Pleurisy. Pericarditis. Esophageal spasm. Pancreatitis. Cholecystitis. Orders placed to evaluate differential diagnosis based on the above differential, HPI and physical exam EKG: Time 1324. Rate 74. Normal sinus rhythm, No ST-T changes, no ectopy, normal NC & QRS intervals, This was reviewed and interpreted by myself the ER physician at 1328 Repeat EKG: Time 1512. Rate 65. Normal sinus rhythm, No ST-T changes, no ectopy, normal NC & QRS intervals, This was reviewed and interpreted by myself the ER physician at 1515. Lab Review: Laboratory results were reviewed and interpreted by myself the emergency room physician. No leukocytosis. No anemia. No renal failure. Lipase is negative. Serial cardiac markers are negative. Assessment of risk: Level of risk: Moderate risk she does have some risk factors. Hospitalization considerations: Heart score does not indicate need for hospitalization Clinical decision support: Heart score of 2. Follow-up with PCP Reexamination: Patient remained stable. No increased work of breathing. No altered mental status. No focal motor deficits. Assessment and plan: Noncardiac chest pain ?Patient received Toradol and multiple doses of Zofran. - Discharged home - Discussed plan with patient. Answered any questions. - Evaluation and treatment of this problem were appropriate in the emergency setting. Lab Data 09/05/25 13:07 09/05/25 13:07 Radiology Impressions Chest X-Ray 09/05/25 13:11 IMPRESSION: No acute findings. Laboratory Results WBC 8.41 10^3/uL (3.29-11.43) 09/05/25 13:07 RBC 3.96 10^6/uL (3.85-5.65) 09/05/25 13:07 Hgb 12.00 g/dL (11.27-16.99) 09/05/25 13:07 Hct 36.6 % (36-47) 09/05/25 13:07 MCV 92.4 fl (85-98) 09/05/25 13:07 MCH 30.3 pg (27-33) 09/05/25 13:07 MCHC 32.8 g/dL (30-55) 09/05/25 13:07 RDW 12.8 % (12.1-15.1) 09/05/25 13:07 Plt Count 367 10^3/cmm (157-399) 09/05/25 13:07 MPV 10.7 fL (7.4-10.4) H 09/05/25 13:07 Neut % (Auto) 46.1 % 09/05/25 13:07 Lymph % (Auto) 39.0 % 09/05/25 13:07 [place] % (Auto) 7.0 % 09/05/25 13:07 Eos % (Auto) 6.2 % 09/05/25 13:07 Baso % (Auto) 1.1 % 09/05/25 13:07 Neut # (Auto) 3.88 10^3/uL (1.8-7.7) 09/05/25 13:07 Lymph # (Auto) 3.3 10^3/uL (0.8-4.8) 09/05/25 13:07 [place] # (Auto) 0.6 10^3/uL (0.2-0.9) 09/05/25 13:07 Eos # (Auto) 0.5 10^3/uL (0.0-0.8) 09/05/25 13:07 Baso # (Auto) 0.1 10^3/uL (0.0-0.1) 09/05/25 13:07 Nucleated RBC % (auto) 0 % 09/05/25 13:07 Nucleated RBCs # 0.0 /100WBC 09/05/25 13:07 Sodium 138 mmol/L (136-145) 09/05/25 13:07 Potassium 4.2 mmol/L (3.5-5.1) 09/05/25 13:07 Chloride 101 mmol/L (98-107) 09/05/25 13:07 Carbon Dioxide 25 mmol/L (22-29) 09/05/25 13:07 Anion Gap 16.2 (5-19) 09/05/25 13:07 BUN 19 mg/dL (6-20) 09/05/25 13:07 Creatinine 0.8 mg/dL (0.5-0.9) 09/05/25 13:07 GFR Calculation 75.9 mL/min (90-130) L 09/05/25 13:07 Glucose 92 mg/dL (65-115) 09/05/25 13:07 Calculated Osmolality 288 mOsm/kg (285-295) 09/05/25 13:07 Calcium 9.4 mg/dL (8.5-10.5) 09/05/25 13:07 Total Bilirubin 0.2 mg/dL (0.15-1.2) 09/05/25 13:07 AST 16 U/L (0-32) 09/05/25 13:07 ALT 18 U/L (0-33) 09/05/25 13:07 Alkaline Phosphatase 70 U/L (35-105) 09/05/25 13:07 Troponin T Baseline 7 ng/L (0-10) 09/05/25 13:07 Troponin T 120 Minute < 6.0 ng/L (0-10) 09/05/25 15:24 Delta Troponin T -1.90188 ABS# (0-10) L 09/05/25 15:24 Total Protein 6.5 g/dL (6.6-8.7) L 09/05/25 13:07 Albumin 4.5 g/dL (3.5-5.2) 09/05/25 13:07 Globulin 2.0 g/dL (1.3-4.6) 09/05/25 13:07 Lipase 27 U/L (13-60) 09/05/25 13:07 All radiology interpretation(s) finalized by discharge Clincial Decision Support The following clinical decision support tools were used to aid in care of the patient HEART Score -> History: Slightly Suspicous, EKG: Normal, Age: 45-64 yrs, Risk Factors: 1 or 2 Risk Factors, Troponin: Baseline Trop <16 ng/L. Resulting HEART Score: 2. Discharge Plan Discharge Patient Disposition: Home Clinical Impression: Non-cardiac chest pain Condition: Stable Prescriptions: No Action buprenorphine-naloxone [Suboxone] 8-2 mg film 2 film buccal DAILY Rx Instructions: place 1 film on inside of (each) cheek aripiprazole [Abilify] 2 mg tablet 2 mg PO DAILY lisinopril 10 mg tablet 10 mg PO DAILY Qty: 90 0RF pantoprazole 40 mg tablet,delayed release (DR/EC) 40 mg PO DAILY Qty: 30 0RF methocarbamol 500 mg tablet 1,000 mg PO Q8H Qty: 30 0RF ibuprofen 800 mg tablet 800 mg PO Q8H PRN (Reason: pain) Qty: 20 0RF hrdnpefqql-dgobfgotfavmm-sicb 50-325-40 mg tablet 1 tab PO Q6H PRN (Reason: headache) 7 Days Qty: 7 0RF ondansetron 8 mg tablet,disintegrating 8 mg PO DAILY PRN (Reason: Nausea) propranolol 10 mg tablet 10 mg PO BID Allergy Relief D-24hr 10-240 mg tablet extended release 24 hr 1 tab PO DAILY fluticasone propionate 50 mcg/actuation spray,suspension 1 spray intranasal DAILY PRN (Reason: allergies) Rx Instructions: administer into each nostril Discharge Orders: Discharge ED (Routine); Ordered 09/05/25 Ordered By: Delfina Grissom Discharge Diet: Usual diet Discharge Activity: Increase activity as tolerated Patient Instructions: Noncardiac Chest Pain (ED), Opioid Safety, Pain Management, Patient Portal & Brody Instructions Activity Restrictions/Additional Instructions: Thank you for choosing [facility] for your healthcare needs today. You have been screened and evaluated and felt safe for discharge. Health conditions do change or evolve sometimes and as such it is important that you follow up with your Primary Doctor to be re checked, 3-5 days is a general good time frame for follow up. You are always welcome to return to the ED for re assessment if your symptoms are worsening or you have new concerns Stand Alone Forms: Work/School Release Print Language: Afghan Coding Level of Care Code ED Access Clerk for Chg Fwd Heart Score HEART Score Components History: Slightly Suspicous EKG: Normal Age: 45-64 yrs Risk Factors: 1 or 2 Risk Factors Troponin: Baseline Trop <16 ng/L HEART Score RESULT HEART Score: 2
[2025-09-05 13:29] VITALS: BP 130/67; PULSE 56; O2SAT 93
[2025-09-05 13:41] LABS: Hematocrit 36.6 % (36-47); Hemoglobin 12.00 g/dL (11.27-16.99); Mean Corpuscular HGB Conc 32.8 g/dL (30-55); Mean Corpuscular Hemoglobin 30.3 pg (27-33); Mean Corpuscular Volume 92.4 fl (85-98); Nucleated Red Blood Cells % 0 %; Platelet Count 367 10^3/cmm (157-399); Red Blood Count 3.96 10^6/uL (3.85-5.65); White Blood Count 8.41 10^3/uL (3.29-11.43)
[2025-09-05 14:04] LABS: Alanine Aminotransferase 18 U/L (0-33); Albumin Level 4.5 g/dL (3.5-5.2); Alkaline Phosphatase 70 U/L (35-105); Anion Gap 16.2 (5-19); Aspartate Amino Transferase 16 U/L (0-32); Blood Urea Nitrogen 19 mg/dL (6-20); Calcium 9.4 mg/dL (8.5-10.5); Carbon Dioxide 25 mmol/L (22-29); Chloride 101 mmol/L (98-107); Creatinine Clr Calc Pharmacy 91.2066; Globulin 2.0 g/dL (1.3-4.6); Glucose 92 mg/dL (65-115); Osmolality Calculated 288 mOsm/kg (285-295); Potassium 4.2 mmol/L (3.5-5.1); Sodium 138 mmol/L (136-145); Total Protein 6.5 g/dL (6.6-8.7); Troponin(5th) Baseline 7 ng/L (0-10)
[2025-09-05 14:23] VITALS: BP 119/53; PULSE 71; O2SAT 96
[2025-09-05 14:30] VITALS: BP 108/53; PULSE 69; O2SAT 95
[2025-09-05] MEDS: ondansetron 2 mg/ML SDV 2 mL 4 MG IVP (14:41)
--- NOTE | 2025-09-05 15:11 | ECG_ITS ---
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
[2025-09-05 15:30] VITALS: BP 123/48; PULSE 73; O2SAT 98
--- NOTE | 2025-09-05 15:52 | PC.PHAR ---
Pt verified her home meds but several have not been filled since March 2025. Pt very lethargic during medication review.
[2025-09-05 15:53] LABS: Troponin 5 2HR < 6.0 ng/L (0-10)
[2025-09-05 15:54] LABS: Troponin 5 2HR Delta -1.00001 ABS# (0-10)
[2025-09-05 16:00] VITALS: BP 100/49; PULSE 71; O2SAT 95
[2025-09-05] MEDS: ondansetron 2 mg/ML SDV 2 mL 8 MG IVP (16:01)
--- NOTE | 2025-09-05 16:37 | DCPLANNER ---
friend Radha is available to give her a ride home if she needs it [phone]
[2025-09-05 16:38] LABS: Lipase 27 U/L (13-60)
== END 2025-09-05 17:06 | disposition home or self-care (01) ==
PROVIDERS: Physician Assistant; Emergency Provider Emergency Medicine
DX: R07.89 Other chest pain (principal); Z72.0 Tobacco use; I10 Essential (primary) hypertension
CPT/HCPCS: 36415; 71045; 80053; 83690; 84484; 85025; 93005; 96374; 96375; 96376; 99285; J1885; J2405

== ENCOUNTER 2025-09-21 07:34 | Emergency (ER) | payer MEDICAID, SELFPAY ==
--- OUTSIDE RECORDS SUMMARY | 2025-09-21 07:38 | XMS_ITS | Encounter Summary ---
Author Organization [facility] Address [address] [place] [address] Care Team Providers Care Unit Manager [employer] Name Role Phone Unavailable Primary Care Provider Unavailabl e Encounter Details Date Type Department Care Team ([facility] st Contact Info) Description 05/04/2024 Outside Records [facility] [address] [place] [address] Interface, Provider Social History Tobacco Use Types [...]
--- OUTSIDE RECORDS SUMMARY | 2025-09-21 07:38 | XMS_ITS | Patient Health Record ---
Author Organization [facility] Address [address] [place] [address] Support Name Relationship Address Phone Lee Pastor Emergency Contact [address] [place] [address] Aure Valladares Guarantor Unknown [phone] Allergies Allergen (clinical drug ingredient) Drug/Non Drug [...] Status W/U Status Risk Notes Problem Sciatica (85854920) Lumbago with sciatica, right side (M54.41) Active confirmed Problem Sciatica (43176954) Lumbago with sciatica, left side (M54.42) Active confirmed Problem Primary hypertension (86702287) Primary hypertension (I10) Active confirmed Plan Of Treatment No Information Medications Administered Medication Instructions Date of Administration Dosage Notes Toradol 15mg/unit (use this one) 09/10/2023 60 mg Celestone/betamethasone acet ate (use this one)-3mg 11/30/2023 12 mg Medical (General) History Surgical History Surgery Date(Month/Year) hysterectomy 2002 c section 2002 gallbladder removal 2006
--- OUTSIDE RECORDS SUMMARY | 2025-09-21 07:38 | XMS_ITS | Encounter Summary ---
Author Organization [facility] [employer] Address [address] [place] [id number] Care Team Providers Care Custody Assistant Name Role Phone Unavailable Primary Care Provider Unavailabl e Encounter Details Date Type Department Care Team (Latest Contact Info) Description 03/06/2024 [place] [address] Rubin Hernandez MD [address] [place] [address] Benign neoplasm of pituitary gland (HCC) (Primary [...]
--- OUTSIDE RECORDS SUMMARY | 2025-09-21 07:38 | XMS_ITS | Clinical Summary ---
Author Organization [facility] Address [address] [place] [id number] Care Team Providers Care Insurance Application Investigator Name Role Phone Unavailable Primary Care Provider [...] this topic Insurance [address] [place] [address] [place] MEDICA[place]-NO REFERRAL REQ
[2025-09-21 07:40] VITALS: BP 125/69; PULSE 72; RESP 17; TEMP 36.7; O2SAT 99; BMI 31.6
--- NOTE | 2025-09-21 08:17 | W.ED.HA ---
HPI - Headache General: Chief Complaint: Headache Stated Complaint: Headache Time Seen by Provider: 09/21/25 08:00 History of Present Illness: 50-year-old female with a history of hypertension, chronic migraines, substance abuse, current treatment on Suboxone, nicotine dependence, depression, anxiety, PTSD and bipolar disorder who presents to the emergency room with a headache. This has been going on since last night. She has had some nausea and vomiting. She has a history of headaches. This is typical for headache. Generalized. Photophobia and phonophobia. Related Data Home Medications ?Medication ?Instructions ?Recorded ?Confirmed buprenorphine 8 mg-naloxone 2 mg 2 film buccal DAILY 02/20/25 09/05/25 sublingual film (Suboxone) aripiprazole 2 mg tablet (Abilify) 2 mg PO DAILY 04/01/25 09/05/25 fluticasone propionate 50 1 spray intranasal DAILY PRN 09/05/25 09/05/25 mcg/actuation nasal allergies spray,suspension loratadine-pseudoephedrine ER 10 1 tab PO DAILY 09/05/25 09/05/25 mg-240 mg tablet,extended [id number] (Allergy Relief D-24hr) ondansetron 8 mg disintegrating 8 mg PO DAILY PRN Nausea 09/05/25 09/05/25 tablet propranolol 10 mg tablet 10 mg PO BID 09/05/25 09/05/25 Previous Rx's ?Medication ?Instructions ?Recorded lisinopril 10 mg tablet 10 mg PO DAILY #90 tabs 04/24/25 shhpobjtng-khpendxgtcumh-ieavjser 1 tab PO Q6H PRN headache 7 days 06/16/25 50 mg-325 mg-40 mg tablet #7 tabs pantoprazole 40 mg tablet,delayed 40 mg PO DAILY #30 tabs 08/09/25 release ibuprofen 800 mg tablet 800 mg PO Q8H PRN pain #20 tabs 08/26/25 methocarbamol 500 mg tablet 1,000 mg (2 x 500 mg) PO Q8H #30 08/26/25 tabs Allergies Allergy/AdvReac Type Severity Reaction Status Date / Time meperidine (From Demerol) Allergy ALGY-Difficulty Verified 08/26/25 16:18 Breathing prochlorperazine (From Allergy ALGY-Hives Verified 08/26/25 16:18 Compazine) Review of Systems Narrative: Constitutional symptoms: Negative except as documented in HPI. Skin symptoms: Negative except as documented in HPI. Eye symptoms: Negative except as documented in HPI. ENMT symptoms: Negative except as documented in HPI. Respiratory symptoms: Negative except as documented in HPI. Cardiovascular symptoms: Negative except as documented in HPI. Gastrointestinal symptoms: Negative except as documented in HPI. Genitourinary symptoms: Negative except as documented in HPI. Musculoskeletal symptoms: Negative except as documented in HPI. Neurologic symptoms: Negative except as documented in HPI. Psychiatric symptoms: Negative except as documented in HPI. Endocrine symptoms: Negative except as documented in HPI. PFS ED PFSH: Medical History (Updated 09/21/25 @ 08:28 by Delfina Grissom MD) Migraine, chronic, without aura on Fioricet for years Hypertension Hx of substance abuse opioids; last use 2010; goes to [facility] for Suboxone Bilateral primary osteoarthritis of knee reports had injections; saw [facility], had MRI was told needed knee replacement Family history of breast cancer in first degree relative Nicotine dependence, cigarettes, with other nicotine-induced disorders Pituitary tumor 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20, treated w/ parlodel; went away; reports symptoms returned Depression with anxiety Post traumatic stress disorder (PTSD) Bipolar 1 disorder Surgical History History of cholecystectomy History of partial hysterectomy ovaries remaining; done for endometriosis and precancerous cells of cervix Hx of section X 2 History of carpal tunnel surgery of right wrist Family History Father Pancreatic cancer Mother Parkinson disease Heart disease Sister Breast cancer Social History Smoking and tobacco/nicotine status: current every day tobacco/nicotine user Second hand smoke exposure: No Alcohol intake: never Substance/Drug Use: former Date of last use: 2010 Former substance use details: opiates; goes to [facility] for suboxone Household members: other Details: living with mother currently Marital status: Legally Number of children: 3 Highest education level completed: Some College, No Degree Current occupational status: unemployed 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 50-year-old female with a history of hypertension, chronic migraines, substance abuse, current treatment on Suboxone, nicotine dependence, depression, anxiety, PTSD and bipolar disorder I reviewed the patient's current home meds Patient is on Suboxone at home Alternate historians: None Differential diagnosis: including but not limited to and based on the above HPI, review of systems and physical exam: Patient has a history of migraines and says this is similar. Assessment and plan: Migraine headache - 50 mg IV Benadryl - 30 mg IV Toradol - 10 mg IV Reglan - 8 mg IV Zofran - 60 mg IV Norflex - Discharged home - Discussed plan with patient. Answered any questions. - Evaluation and treatment of this problem were appropriate in the emergency setting. No radiology studies performed this visit Discharge Plan Discharge Patient Disposition: Home Clinical Impression: Headache Condition: Stable Prescriptions: No Action buprenorphine-naloxone [Suboxone] 8-2 mg film 2 film buccal DAILY Rx Instructions: place 1 film on inside of (each) cheek aripiprazole [Abilify] 2 mg tablet 2 mg PO DAILY lisinopril 10 mg tablet 10 mg PO DAILY Qty: 90 0RF pantoprazole 40 mg tablet,delayed release (DR/EC) 40 mg PO DAILY Qty: 30 0RF methocarbamol 500 mg tablet 1,000 mg PO Q8H Qty: 30 0RF ibuprofen 800 mg tablet 800 mg PO Q8H PRN (Reason: pain) Qty: 20 0RF dtnqabfhfv-jyqknjjzcishv-audh 50-325-40 mg tablet 1 tab PO Q6H PRN (Reason: headache) 7 Days Qty: 7 0RF ondansetron 8 mg tablet,disintegrating 8 mg PO DAILY PRN (Reason: Nausea) propranolol 10 mg tablet 10 mg PO BID Allergy Relief D-24hr 10-240 mg tablet extended release 24 hr 1 tab PO DAILY fluticasone propionate 50 mcg/actuation spray,suspension 1 spray intranasal DAILY PRN (Reason: allergies) Rx Instructions: administer into each nostril Discharge Orders: Discharge ED (Routine); Ordered 09/21/25 Ordered By: Delfina Grissom Discharge Diet: Usual diet Discharge Activity: Increase activity as tolerated Patient Instructions: Acute Headache (ED), Opioid Safety, Pain Management, Patient Portal & Brody Instructions Activity Restrictions/Additional Instructions: Thank you for choosing [facility] for your healthcare needs today. You have been screened and evaluated and felt safe for discharge. Health conditions do change or evolve sometimes and as such it is important that you follow up with your Primary Doctor to be re checked, 3-5 days is a general good time frame for follow up. You are always welcome to return to the ED for re assessment if your symptoms are worsening or you have new concerns Print Language: Divehi Coding Level of Care Code ED Ship Engineer for Allan Huertas
[2025-09-21] MEDS: ondansetron 2 mg/ML SDV 2 mL 8 MG IVP (08:39)
[2025-09-21] MEDS: metoclopramide 5 mg/mL SDV 2 mL 10 MG IVP (08:41)
[2025-09-21] MEDS: diphenhydrAMINE 50 mg/mL SDV 1mL IVP (08:44)
[2025-09-21] MEDS: orphenadrine 30 mg/mL Inj 2 mL 60 MG IVP (08:46)
[2025-09-21 08:49] VITALS: BP 115/65; PULSE 59; RESP 14; O2SAT 97
[2025-09-21 09:35] VITALS: BP 131/76; PULSE 62; O2SAT 94
== END 2025-09-21 09:37 | disposition home or self-care (01) ==
PROVIDERS: Emergency Provider Emergency Medicine
DX: R51.9 Headache, unspecified (principal)
CPT/HCPCS: 96374; 96375; 99284; J1100; J1200; J1885; J2360; J2405; J2765

== ENCOUNTER 2025-10-06 20:55 | Emergency (ER) | payer OTHER, BC, MEDICAID, SELFPAY ==
[2025-10-06 21:01] VITALS: BP 116/74; PULSE 74; RESP 20; TEMP 36.5; O2SAT 97; BMI 31.6
--- NOTE | 2025-10-06 21:01 | ECG_ITS ---
[facility] Test Date: 2025-10-06 Pat Name: Aure Valladares Department: Room: Gender: Female Metallurgical Technician: : 1975 Requested By: Sky Meehan Order Number: [id number] Mao MD: Tomas Perez M.D. Measurements Intervals [place] Rate: 71 P: 38 UT: 160 QRS: 19 QRSD: 86 T: 20 QT: 402 QTc: 437 Interpretive Statements SINUS RHYTHM LOW QRS VOLTAGE IN PRECORDIAL LEADS [QRS DEFLECTION < 1.0 mV IN CHEST LEADS] Compared to ECG 09/05/2025 15:12:16 Low QRS voltage now present Electronically Signed On 10-09-2025 22:24:30 CONTAINER REPAIRER by Tomas Perez M.D. [id number]
--- OUTSIDE RECORDS SUMMARY | 2025-10-06 21:06 | XMS_ITS | Patient Health Record ---
Author Organization [facility] Address [address] [facility] [address] [place] [address] Support Name Relationship Address Phone Lee Pastor Emergency Contact [address] [place] [address] Aure Valladares Guarantor Unknown [phone] Allergies Allergen (clinical drug ingredient) Drug/Non Drug [...] Status W/U Status Risk Notes Problem Sciatica (99019036) Lumbago with sciatica, right side (M54.41) Active confirmed Problem Sciatica (72291553) Lumbago with sciatica, left side (M54.42) Active confirmed Problem Primary hypertension (88143377) Primary hypertension (I10) Active confirmed Plan Of Treatment No Information Medications Administered Medication Instructions Date of Administration Dosage Notes Toradol 15mg/unit (use this one) 09/10/2023 60 mg Celestone/betamethasone acet ate (use this one)-3mg 11/30/2023 12 mg Medical (General) History Surgical History Surgery Date(Month/Year) hysterectomy 2002 c section 2002 gallbladder removal 2006
--- OUTSIDE RECORDS SUMMARY | 2025-10-06 21:06 | XMS_ITS | Encounter Summary ---
Author Organization [facility] Address [address] [place] [address] Care Team Providers Care Registry Nurse Name Role Phone Unavailable Primary Care Provider Unavailabl e Encounter Details Date Type Department Care Team (Latest Contact Info) Description 03/06/2024 Order [place] [address] Rubin Hernandez MD [address] [place] [address] Benign neoplasm of pituitary gland (HCC) (Primary [...]
--- OUTSIDE RECORDS SUMMARY | 2025-10-06 21:06 | XMS_ITS | Clinical Summary ---
Author Organization [facility] [employer] Address [address] [place] [address] Care Team Providers Care Port Engineer Name Role Phone Unavailable Primary Care Provider [...] this topic Insurance [address] [place] [id number] [place] MEDICA[place] REFERRAL REQ
--- OUTSIDE RECORDS SUMMARY | 2025-10-06 21:06 | XMS_ITS | Encounter Summary ---
Author Organization [facility] [employer] Address [address] [place] [address] Care Team Providers Care Mental Telepathist Name Role Phone Unavailable Primary Care Provider Unavailabl e Encounter Details Date Type Department Care Team ([facility] st Contact Info) Description 05/04/2024 Outside Records [facility] [address] [facility] [place] [address] Interface, Provider Social History Tobacco Use Types [...]
--- NOTE | 2025-10-06 21:08 | XRR_ITS ---
PROCEDURE INFORMATION: Exam: XR Chest Exam date and time: 10/06/2025 9:31 PM Age: 50 years old Clinical indication: Sternal or substernal pain; C/O substernal chest pain x a few hours. PT reports pain feels sharp, stabbing, real heavy . ; Additional info: Cp TECHNIQUE: Imaging protocol: Radiologic exam of the chest. Views: 1 view. COMPARISON: CR (CHEST, ) 09/05/2025 1:37 PM FINDINGS: Lungs: Mild peripheral left basilar opacity. Pleural spaces: Small left pleural effusion. No pneumothorax. Heart/Mediastinum: Unremarkable. No cardiomegaly. Bones/joints: Spondylosis and bilateral acromioclavicular joint arthropathy. XR/XR chest 1V portable [id number] IMPRESSION: Small left pleural effusion and mild basilar opacity that may represent atelectasis or infiltrate.
[2025-10-06 21:36] LABS: Hematocrit 37.7 % (36-47); Hemoglobin 12.40 g/dL (11.27-16.99); Mean Corpuscular HGB Conc 32.9 g/dL (30-55); Mean Corpuscular Hemoglobin 30.5 pg (27-33); Mean Corpuscular Volume 92.6 fl (85-98); Nucleated Red Blood Cells % 0 %; Platelet Count 358 10^3/cmm (157-399); Red Blood Count 4.07 10^6/uL (3.85-5.65); White Blood Count 6.46 10^3/uL (3.29-11.43)
[2025-10-06 21:37] VITALS: BP 102/67; PULSE 70; O2SAT 98
[2025-10-06] MEDS: lidocaine 2% viscous 15 ML, aluminum-mag hydrox-simethicon 30 ML, sucralfate oral liq 1 GM PO (21:53)
[2025-10-06] MEDS: ondansetron 2 mg/ML SDV 2 mL 4 MG IVP (21:55)
--- NOTE | 2025-10-06 22:01 | ED_ITS ---
HPI - Chest Pain 2 General: Chief Complaint: Chest Pain Stated Complaint: Pains In her Chest Time Seen by Provider: 10/06/25 21:14 History of Present Illness: Patient is a 50-year-old female presenting with chest pain localized to the mid- sternal region with radiation to the back. She reports associated symptoms including nausea with multiple episodes of vomiting, left arm and hand numbness that has been occurring frequently lately, and mild shortness of breath. Patient describes a 'heavy feeling' in her chest and states she has 'never had this like this before.' She denies fever or cough. Patient reports minimal lower extremity edema. No known history of cardiac problems and has never had a stress test or other cardiac workup. Related Data Home Medications ?Medication ?Instructions ?Recorded ?Confirmed buprenorphine 8 mg-naloxone 2 mg 2 film buccal DAILY 0 02/20/25 09/05/25 sublingual film (Suboxone) aripiprazole 2 mg tablet (Abilify) 2 mg PO DAILY 04/0109/05/25 fluticasone propionate 50 1 spray intranasal DAILY PRN 09/05/25 09/05/25 mcg/actuation nasal allergies spray,suspension loratadine-pseudoephedrine ER 10 1 tab PO DAILY 09/05/25 mg-240 mg tablet,extended [id number] (Allergy Relief D-24hr) ondansetron 8 mg disintegrating 8 mg PO DAILY PRN Naus ea 09/05/25 09/05/25 tablet propranolol 10 mg tablet 10 mg PO BID 09/05/25 Previous Rx's ?Medication ?Instructions ?Recorded lisinopril 10 mg tablet 10 mg PO DAILY #90 tabs 04/01 03/24 gdcnmirnel-ueeeppwxxezkv-uimdxaco 1 tab PO Q6H PRN hea dache 7 days 06/16/25 50 mg-325 mg-40 mg tablet #7 tabs pantoprazole 40 mg tablet,delayed 40 mg PO DAILY #30 t abs 08/09/25 release ibuprofen 800 mg tablet 800 mg PO Q8H PRN pain #20 t abs 08/26/25 methocarbamol 500 mg tablet 1,000 mg (2 x 500 mg) PO Q 8H #30 08/26/25 tabs Allergies Allergy/AdvReac Type Severity Reaction Status Date / Time meperidine (From Demerol) Allergy ALGY-Difficulty Verified 10/06/25 21:08 Breathing prochlorperazine (From Allergy ALGY-Hives Verified 10/06/25 21:08 Compazine) Review of Systems 2 Narrative: Constitutional: Denies fever. Cardiovascular: Positive for chest pain described as mid-sternal with radiation to back, associated with 'heavy feeling.' Minimal lower extremity edema reported. Respiratory: Positive for mild shortness of breath. Denies cough. Gastrointestinal: Positive for nausea and vomiting. Mild abdominal tenderness on exam. Neurological: Positive for left arm and hand numbness occurring frequently lately. 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20, treated w/ parlodel; went away; reports symptoms returned Depression with anxiety Post traumatic stress disorder (PTSD) Bipolar 1 disorder Surgical History History of cholecystectomy History of partial hysterectomy ovaries remaining; done for endometriosis and precancerous cells of cervix Hx of section X 2 History of carpal tunnel surgery of right wrist Family History Father Pancreatic cancer Mother Parkinson disease Heart disease Sister Breast cancer Social History Smoking and tobacco/nicotine status: current every day tobacco/nicotine user Second hand smoke exposure: No Alcohol intake: never Substance/Drug Use: former Date of last use: 2010 Former substance use details: opiates; goes to [facility] for suboxone Household members: other Details: living with mother currently Marital status: Legally Number of children: 3 Highest education level completed: Some College, No Degree Current occupational status: unemployed 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 Physical Exam 2 Const: COMMON NORMALS: no acute distress GENERAL APPEARANCE: cooperative; not ill appearing and not frail appearing HENMT: COMMON NORMALS: normocephalic, atraumatic and Normal external nose present HEAD & SCALP: normocephalic and atraumatic FACE & SINUS: normal facial exam and face symmetric NOSE: Normal external nose present Eye: COMMON NORMALS: Equal, round and reactive pupils present and EOMs intact bilaterally PUPIL: Yes Equal, round and reactive pupils present Neck/C-Spine: GENERAL: Yes trachea midline Chest: CHEST: Yes Symmetrical chest wall rise Resp: COMMON NORMALS: normal respiratory effort, No retractions, No use of accessory muscles and clear to auscultation bilaterally AUSCULTATION: clear to auscultation bilaterally Cardio: COMMON NORMALS: regular rate and regular rhythm RATE: regular rate RHYTHM: regular rhythm GI: COMMON NORMALS: Normal to inspection, nondistended, normoactive bowel sounds present Extremity: COMMON NORMALS: no pedal edema Neuro: KARY COMA SCALE: document GCS findings Kary coma scale eye opening: Spontaneous Overgaard coma scale verbal response: Orientated Kary coma scale motor response: Obey commands Overgaard coma scale total score: 15 S ENSORY EXAM: Yes extremities (intact) Psych: COMMON NORMALS: speech normal SPEECH: Yes normal speech Skin: COMMON NORMALS: no rashes or lesions noted GENERAL SKIN EXAM: no rashes or lesions noted Course 2 Vital Signs: Vital signs: Vital Signs Temperature 97.7 F 10/06/25 21:01 Pulse Rate 64 10/06/25 23:30 Respiratory Rate 20 H 10/06/25 21:01 Blood Pressure 98/55 10/06/25 23:30 Pulse Oximetry 97 10/06/25 23:30 Oxygen Delivery Me thod Room Air 10/06/25 21:37 MDM - Chest Pain Medical Decision Making Vitals are stable here. She is afebrile. CBC is normal. BMP is normal. Chest x-ray shows a small left pleural effusion. Troponin is nondetectable. D-dimer is normal. BNP is nondetectable. Lipase is normal. Pain is improved after GI cocktail here. She will be discharged Lab Data 10/06/25 21:30 10/06/25 21:30 Radiology Impressions Chest X-Ray 10/06/25 21:08 IMPRESSION: Small left pleural effusion and mild basilar opacity that may represent atelectasis or infiltrate. Laboratory Results WBC 6.46 10^3/uL (3.29-11.43) 10/06/25: RBC 4.07 10^6/uL (3.85-5.65) 10/06/25 21: Hgb 12.40 g/dL (11.27-16.99) 10/06/25 21: Hct 37.7 % (36-47) 10/06/25 21: MCV 92.6 fl (85-98) 10/06/25: MCH 30.5 pg (27-33) 10/06/25 21: MCHC 32.9 g/dL (30-55) 10/06/25: RDW 12.4 % (12.1-15.1) 10/06/25: Plt Count 358 10^3/cmm (157-399) 10/06/25: MPV 10.4 fL (7.4-10.4) 10/06/25: Neut % (Auto) 44.4 % 10/06/25: Lymph % (Auto) 43.7 % 10/06/25 21: Hodgeman % (Auto) 5.1 % 10/06/25: Eos % (Auto) 5.7 % 10/06/25: Baso % (Auto) 0.9 % 10/06/25: Neut # (Auto) 2.87 10^3/uL (1.8-7.7) 10/06/25: Lymph # (Auto) 2.8 10^3/uL (0.8-4.8) 10/06/25: Hodgeman # (Auto) 0.3 10^3/uL (0.2-0.9) 10/06/25: Eos # (Auto) 0.4 10^3/uL (0.0-0.8) 10/06/25: Baso # (Auto) 0.1 10^3/uL (0.0-0.1) 10/06/25: Nucleated RBC % (auto) 0 % 10/06/25: Nucleated RBCs # 0.0 /100WBC 10/06/25: D-Dimer 0.33 ug/mLFEU (0-0.59) 10/06/25 21:30 Sodium 136 mmol/L (136-145) 10/06/25 21:30 Potassium 3.7 mmol/L (3.5-5.1) 10/06/25 21:30 Chloride 99 mmol/L (98-107) 10/06/25 21:30 Carbon Dioxide 28 mmol/L (22-29) 10/06/25 21:30 Anion Gap 12.7 (5-19) 10/06/25 21:30 BUN 12 mg/dL (6-20) 10/06/25 21:30 Creatinine 0.7 mg/dL (0.5-0.9) 10/06/25 21:30 GFR Calculation 88.6 mL/min (90-130) L 10/06/25: Glucose 88 mg/dL (65-115) 10/06/25 21: Calculated Osmolality 281 mOsm/kg (285-295) L 10/06/25: Calcium 9.4 mg/dL (8.5-10.5) 10/06/25 21:30 Total Bilirubin 0.2 mg/dL (0.15-1.2) 10/06/25 21:30 AST 13 U/L (0-32) 10/06/25 21:30 ALT 12 U/L (0-33) 10/06/25 21: Alkaline Phosphatase 65 U/L (35-105) 10/06/25 21:30 Troponin T Baseline < 6 ng/L (0-10) 10/06/25 21:30 NT-Pro-B Natriuret Pep < 36 pg/mL (0-125) 10/06/25 21: Total Protein 7.1 g/dL (6.6-8.7) 10/06/25 21:30 Albumin 4.6 g/dL (3.5-5.2) 10/06/25 21: Globulin 2.5 g/dL (1.3-4.6) 10/06/25 21: Lipase 14 U/L (13-60) 10/06/25 21:30 All radiology interpretation(s) finalized by discharge EKG Data EKG 1: Interpretation: EKG time 2100 read 2103. Sinus rhythm. Normal axis. Rate 70. Normal intervals. QTc 424. No acute ST-T wave changes. Discharge Plan Discharge Patient Disposition: Home Clinical Impression: Chest pain Condition: Stable Prescriptions: No Action buprenorphine-naloxone [Suboxone] 8-2 mg film 2 film buccal DAILY Rx Instructions: place 1 film on inside of (each) cheek aripiprazole [Abilify] 2 mg tablet 2 mg PO DAILY lisinopril 10 mg tablet 10 mg PO DAILY Qty: 90 0RF pantoprazole 40 mg tablet,delayed release (DR/EC) 40 mg PO DAILY Qty: 30 0RF methocarbamol 500 mg tablet 1,000 mg PO Q8H Qty: 30 0RF ibuprofen 800 mg tablet 800 mg PO Q8H PRN (Reason: pain) Qty: 20 0RF brhawvxufj-kjtelmjvswoso-lygo 50-325-40 mg tablet 1 tab PO Q6H PRN (Reason: headache) 7 Days Qty: 7 0RF ondansetron 8 mg tablet,disintegrating 8 mg PO DAILY PRN (Reason: Nausea) propranolol 10 mg tablet 10 mg PO BID Allergy Relief D-24hr 10-240 mg tablet extended release 24 hr 1 tab PO DAILY fluticasone propionate 50 mcg/actuation spray,suspension 1 spray intranasal DAILY PRN (Reason: allergies) Rx Instructions: administer into each nostril Discharge Orders: Discharge ED (Routine); Ordered 10/06/25 Ordered By: Sky Salcedo Patient Instructions: Chest Pain (ED), Opioid Safety, Pain Management, Patient Portal & Brody Instructions Activity Restrictions/Additional Instructions: Return for cough, fever, worsening shortness of breath, any other new concerns. Case management should contact you regarding setting up with primary care appointment for follow-up. Continue your pantoprazole. Stand Alone Forms: Work/School Release Print Language: Japanese Coding Level of Care Code ED Fish Hatchery Manager for Chg Fwd Heart Score HEART Score Components History: Slightly Suspicous EKG: Normal Age: 45-64 yrs Risk Factors: 1 or 2 Risk Factors Troponin: Baseline Trop <16 ng/L HEART Score RESULT HEART Score: 2
[2025-10-06 22:03] LABS: Lipase 14 U/L (13-60)
[2025-10-06 22:04] LABS: Troponin(5th) Baseline < 6 ng/L (0-10)
[2025-10-06 22:14] LABS: Alanine Aminotransferase 12 U/L (0-33); Albumin Level 4.6 g/dL (3.5-5.2); Alkaline Phosphatase 65 U/L (35-105); Anion Gap 12.7 (5-19); Aspartate Amino Transferase 13 U/L (0-32); Blood Urea Nitrogen 12 mg/dL (6-20); Calcium 9.4 mg/dL (8.5-10.5); Carbon Dioxide 28 mmol/L (22-29); Chloride 99 mmol/L (98-107); Globulin 2.5 g/dL (1.3-4.6); Glucose 88 mg/dL (65-115); NT Pro B Type Natriuretic Pept < 36 pg/mL (0-125); Osmolality Calculated 281 mOsm/kg (285-295); Potassium 3.7 mmol/L (3.5-5.1); Sodium 136 mmol/L (136-145); Total Protein 7.1 g/dL (6.6-8.7)
[2025-10-06 22:30] VITALS: BP 112/63; PULSE 72; O2SAT 96
[2025-10-06 23:30] VITALS: BP 98/55; PULSE 64; O2SAT 97
== END 2025-10-06 23:31 | disposition home or self-care (01) ==
PROVIDERS: Emergency Provider Emergency Medicine
DX: R07.9 Chest pain, unspecified (principal); Z72.0 Tobacco use; I10 Essential (primary) hypertension
CPT/HCPCS: 71045; 80053; 83690; 83880; 84484; 85025; 85378; 93005; 96374; 96375; 99285; J1885; J2405; J9999

== ENCOUNTER 2025-10-25 20:15 | Emergency (ER) | payer BC, MEDICAID, SELFPAY ==
[2025-10-25] VITALS (14 sets, daily range): BP systolic 129–177; BP diastolic 73–85; PULSE 54–69; RESP 13–20; TEMP 36.6; O2SAT 93–100; BMI 31.6
--- OUTSIDE RECORDS SUMMARY | 2025-10-25 20:18 | XMS_ITS | Encounter Summary ---
Author Organization [facility] [employer] Address [address] [place] [address] Care Team Providers Care Location And Measurement Technician Name Role Phone Unavailable Primary Care Provider Unavailabl e Encounter Details Date Type Department Care Team ([facility] st Contact Info) Description 05/04/2024 Outside Records [facility] [address] [facility] [place] [address] Interface, Provider Social History Tobacco Use Types [...]
--- OUTSIDE RECORDS SUMMARY | 2025-10-25 20:18 | XMS_ITS | Patient Health Record ---
Author Organization [facility] Address [address] [facility] [address] [place] [address] Support Name Relationship Address Phone Lee Pastor Emergency Contact [address] [place] [address] Aure Valladares Guarantor Unknown [phone] Allergies Allergen (clinical drug ingredient) Drug/Non Drug [...] Status W/U Status Risk Notes Problem Sciatica (89382317) Lumbago with sciatica, right side (M54.41) Active confirmed Problem Sciatica (71849115) Lumbago with sciatica, left side (M54.42) Active confirmed Problem Primary hypertension (96780660) Primary hypertension (I10) Active confirmed Plan Of Treatment No Information Medications Administered Medication Instructions Date of Administration Dosage Notes Toradol 15mg/unit (use this one) 09/10/2023 60 mg Celestone/betamethasone acet ate (use this one)-3mg 11/30/2023 12 mg Medical (General) History Surgical History Surgery Date(Month/Year) hysterectomy 2002 c section 2002 gallbladder removal 2006
--- OUTSIDE RECORDS SUMMARY | 2025-10-25 20:18 | XMS_ITS | Encounter Summary ---
Author Organization [facility] [employer] Address [address] [place] [address] Care Team Providers Care Cash Management Associate Name Role Phone Unavailable Primary Care Provider Unavailabl e Encounter Details Date Type Department Care Team (Latest Contact Info) Description 03/06/2024 Order [place] [address] Rubin Hernandez MD [address] [place] [address] Benign neoplasm of pituitary gland (HCC) (Primary [...]
--- OUTSIDE RECORDS SUMMARY | 2025-10-25 20:18 | XMS_ITS | Clinical Summary ---
Author Organization [facility] [employer] Address [address] [place] [address] Care Team Providers Care Vat Skimmer Name Role Phone Unavailable Primary Care Provider [...] of 2) 2025 COVID-19 Vaccine (1 - 2024-2 6 season) 2025 Influenza Series (#1) 2025 Respiratory Syncytial Virus (RSV) Immunization - pts and pts aged 50 yrs+ (1 - 1-dose 75+ series) 2050 Meningococcal B Vaccine Aged Out No l onger eligible based on patient's age to complete this topic Insurance [address] [place] [address] [place] MEDICA[place]-NO REFERRAL REQ
--- NOTE | 2025-10-25 20:24 | XRR_ITS ---
PROCEDURE INFORMATION: Exam: XR Chest Exam date and time: 10/25/2025 9:21 PM Age: 50 years old Clinical indication: Prior surgery; Surgery date: 6+ months; Surgery type: Gb; Cough with congestion; Additional info: Dyspnea/cough TECHNIQUE: Imaging protocol: Radiologic exam of the chest. Views: 1 view. COMPARISON: CR (CHEST, ) 10/06/2025 9:31 PM FINDINGS: Lungs: No consolidation. Pleural spaces: No pleural effusion. No pneumothorax. Heart/Mediastinum: No cardiomegaly. Bones/joints: No acute findings. XR/XR chest 1V portable [id number] IMPRESSION: No acute airspace disease.
--- NOTE | 2025-10-25 20:41 | ECG_ITS ---
[employer] Test Date: 2025-10-25 Pat Name: Aure Valladares Department: Room: Gender: Female Distance Learning Coordinator: : 1975 Requested By: David Jerry Order Number: [id number] Reading MD: KENNY DAVIS Measurements Intervals Gilchrist Rate: 58 P: -31 GA: 123 QRS: 14 QRSD: 90 T: 9 QT: 425 QTc: 418 Interpretive Statements SINUS BRADYCARDIA LOW QRS VOLTAGE IN PRECORDIAL LEADS [QRS DEFLECTION < 1.0 mV IN CHEST LEADS] Compared to ECG 10/06/2025 21:01:58 Sinus rhythm no longer present Electronically Signed On 10-27-2025 23:00:06 ORTHOPEDIC NURSE by KENNY DAVIS [email or web address]
[2025-10-25 21:20] LABS: Hematocrit 39.7 % (36-47); Hemoglobin 13.20 g/dL (11.27-16.99); Mean Corpuscular HGB Conc 33.2 g/dL (30-55); Mean Corpuscular Hemoglobin 31.3 pg (27-33); Mean Corpuscular Volume 94.1 fl (85-98); Nucleated Red Blood Cells % 0 %; Platelet Count 315 10^3/cmm (157-399); Red Blood Count 4.22 10^6/uL (3.85-5.65); White Blood Count 8.69 10^3/uL (3.29-11.43)
--- NOTE | 2025-10-25 21:22 | W.ED.URI ---
HPI - URI/Sore Throat General: Chief Complaint: Upper Respiratory Infection Stated Complaint: cough chest congestion/ with pain Time Seen by Provider: 10/25/25 21:12 History of Present Illness: 50-year-old female presents to the emergency room complaining of chest pain with cough and congestion. She has had upper respiratory symptoms for the last 5 days she was seen in urgent care they started on Augmentin she states she feels like she has not really gotten any better. Patient is a smoker. Cough is intermittently productive she denies any hemoptysis. There is no dysuria urgency or frequency. She reports subjective fever at home. Associated symptoms: Deny abdominal pain, chills, chest pain or fever(s) Related Data Home Medications ?Medication ?Instructions ?Recorded ?Confirmed buprenorphine 8 mg-naloxone 2 mg 2 film buccal DAILY 02/20/25 10/17/25 sublingual film (Suboxone) aripiprazole 2 mg tablet (Abilify) 2 mg PO DAILY 04/01/25 10/17/25 fluticasone propionate 50 1 spray intranasal DAILY PRN 09/05/25 10/17/25 mcg/actuation nasal allergies spray,suspension loratadine-pseudoephedrine ER 10 1 tab PO DAILY 09/05/25 10/17/25 mg-240 mg tablet,extended [id number] (Allergy Relief D-24hr) ondansetron 8 mg disintegrating 8 mg PO DAILY PRN Nausea 09/05/25 10/17/25 tablet propranolol 10 mg tablet 10 mg PO BID 09/05/25 10/17/25 Previous Rx's ?Medication ?Instructions ?Recorded lisinopril 10 mg tablet 10 mg PO DAILY #90 tabs 04/24/25 kcyzlsfwtl-exqnmckpyhgku-vvxvmvgq 1 tab PO Q6H PRN headache 7 days 06/16/25 50 mg-325 mg-40 mg tablet #7 tabs pantoprazole 40 mg tablet,delayed 40 mg PO DAILY #30 tabs 08/09/25 release capsaicin 0.1 % topical cream 1 applic topical TID #56.6 grams 10/16/25 ibuprofen 800 mg tablet 800 mg PO Q8H PRN pain #20 tabs 10/16/25 prednisone 10 mg tablet 10 mg PO DAILY 5 days #5 tabs 10/16/25 albuterol sulfate 90 mcg/actuation 2 puff inhalation Q6H PRN 10/17/25 aerosol inhaler (Ventolin HFA) shortness of breath or wheezing #8.5 grams amoxicillin 875 mg tablet 875 mg PO BID 10 days #20 tabs 10/17/25 albuterol sulfate 90 mcg/actuation 2 inh inhalation Q4H PRN shortness 10/25/25 aerosol inhaler of breath or wheezing #18 grams methylprednisolone 4 mg tablets in See Rx Instructions PO .COMPLEX 10/25/25 a dose pack (Medrol (Miguel Angel)) #21 ea Allergies Allergy/AdvReac Type Severity Reaction Status Date / Time meperidine (From Demerol) Allergy ALGY-Difficulty Verified 10/17/25 17:43 Breathing prochlorperazine (From Allergy ALGY-Hives Verified 10/17/25 17:43 Compazine) Review of Systems Const: Denies: fever(s) or chills Card: Denies: chest pain Resp: Reports: productive cough (Intermittent) and chest congestion; Denies: dyspnea GI: Denies: abdominal pain : Denies: dysuria, urinary frequency or urinary urgency Musc: Denies: neck pain or back pain Skin/Breast: Denies: rash PFSH ED PFSH: Medical History Migraine, chronic, without aura on Fioricet for years Hypertension Hx of substance abuse opioids; last use 2010; goes to [facility] for Sub[facility] Bilateral primary osteoarthritis of knee reports had injections; saw [facility], had MRI was told needed knee replacement Family history of breast cancer in first degree relative Nicotine dependence, cigarettes, with other nicotine-induced disorders Pituitary tumor 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20, treated w/ [facility]; went away; reports symptoms returned Depression with anxiety Post traumatic stress disorder (PTSD) Bipolar 1 disorder Surgical History History of cholecystectomy History of partial hysterectomy ovaries remaining; done for endometriosis and precancerous cells of cervix Hx of section X 2 History of carpal tunnel surgery of right wrist Family History Father Pancreatic cancer Mother Parkinson disease Heart disease Sister Breast cancer Social History (Reviewed 10/25/25 @ 21:24 by ALISON Gill Smoking and tobacco/nicotine status: current every day tobacco/nicotine user Second hand smoke exposure: No Alcohol intake: never Substance/Drug Use: former Date of last use: 2010 Former substance use details: opiates; [facility] Household members: other Details: living with mother currently Marital status: Legally Number of children: 3 Highest education level completed: Some College, No Degree Current occupational status: unemployed 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 Physical Exam Const: GENERAL APPEARANCE: cooperative ORIENTATION/CONSCIOUSNESS: Yes awake, Yes oriented to person, Yes oriented to place and Yes oriented to time HENMT: COMMON NORMALS: normocephalic, atraumatic and hearing grossly normal bilaterally HEAD & SCALP: normocephalic and atraumatic Resp: COMMON NORMALS: normal respiratory effort, No retractions, No use of accessory muscles and clear to auscultation bilaterally AUSCULTATION: clear to auscultation bilaterally Cardio: COMMON NORMALS: regular rate, regular rhythm and No murmurs present (Cardio) RATE: regular rate RHYTHM: regular rhythm GI: COMMON NORMALS: Soft to palpation and No hepatosplenomegaly present AUSCULTATION: Yes normoactive bowel sounds PALPATION: Yes Soft to palpation, No Tenderness to palpation present (GI), No Guarding due to palpation present (GI) and Yes No hepatosplenomegaly present Extremity: COMMON NORMALS: normal to inspection, capillary refill normal, no clubbing, cyanosis or edema, no calf tenderness and no pedal edema Neuro: SENSORIUM/ORIENTATION: Yes oriented to person, Yes oriented to place and Yes oriented to time Skin: COMMON NORMALS: no rashes or lesions noted GENERAL SKIN EXAM: no rashes or lesions noted Course Vital Signs: Vital signs: Vital Signs Temperature 97.9 F 10/25/25 20:29 Pulse Rate 56 L 10/25/25 22:50 Respiratory Rate 18 10/25/25 22:50 Blood Pressure 134/80 10/25/25 22:50 Pulse Oximetry 94 10/25/25 22:50 Oxygen Delivery Me thod Room Air 10/25/25 20:29 MDM - URI/Sore Throat Medical Decision Making Medical decision making Social determinants: None I reviewed the patient's medical record. I reviewed the patient's current home meds. Alternate historians: None Differential diagnosis: Viral bronchiolitis pneumonia exacerbation COPD influenza COVID Lab Review: Laboratory test reviewed no leukocytosis no anemia. Chemistry panel is normal. COVID RSV and flu are negative. Imaging: No acute finding on chest x-ray no infiltrates no pneumonias no increased vascular markings Assessment of risk Level of risk: Low Hospitalization considerations: No indication for hospitalization Reexamination: Improved Assessment and plan: Patient seen with persistent cough. Chest x-ray normal is no sign pneumonia at this time believe this is all viral upper respiratory infection along with a COPD exacerbation will place on taper of steroids aggressive use of albuterol and follow-up with primary care return if has further problems or change in symptoms. Lab Data 10/25/25 21:07 10/25/25 21:07 Radiology Impressions Chest X-Ray 10/25/25 20:24 IMPRESSION: No acute airspace disease. Laboratory Results WBC 8.69 10^3/uL (3.29-11.43) 10/25/25 21:07 RBC 4.22 10^6/uL (3.85-5.65) 10/25/25 21:07 Hgb 13.20 g/dL (11.27-16.99) 10/25/25 21:07 Hct 39.7 % (36-47) 10/25/25 21:07 MCV 94.1 fl (85-98) 10/25/25 21:07 MCH 31.3 pg (27-33) 10/25/25 21:07 MCHC 33.2 g/dL (30-55) 10/25/25 21:07 RDW 12.5 % (12.1-15.1) 10/25/25 21:07 Plt Count 315 10^3/cmm (157-399) 10/25/25 21:07 MPV 10.6 fL (7.4-10.4) H 10/25/25 21:07 Neut % (Auto) 54.1 % 10/25/25 21:07 Lymph % (Auto) 35.6 % 10/25/25 21:07 Ramsey % (Auto) 4.6 % 10/25/25 21:07 Eos % (Auto) 4.6 % 10/25/25 21:07 Baso % (Auto) 0.8 % 10/25/25 21:07 Neut # (Auto) 4.70 10^3/uL (1.8-7.7) 10/25/25 21:07 Lymph # (Auto) 3.1 10^3/uL (0.8-4.8) 10/25/25 21:07 Ramsey # (Auto) 0.4 10^3/uL (0.2-0.9) 10/25/25 21:07 Eos # (Auto) 0.4 10^3/uL (0.0-0.8) 10/25/25 21:07 Baso # (Auto) 0.1 10^3/uL (0.0-0.1) 10/25/25 21:07 Nucleated RBC % (auto) 0 % 10/25/25 21:07 Nucleated RBCs # 0.0 /100WBC 10/25/25 21:07 Sodium 140 mmol/L (136-145) 10/25/25 21:07 Potassium 4.0 mmol/L (3.5-5.1) 10/25/25 21:07 Chloride 103 mmol/L (98-107) 10/25/25 21:07 Carbon Dioxide 27 mmol/L (22-29) 10/25/25 21:07 Anion Gap 14.0 (5-19) 10/25/25 21:07 BUN 15 mg/dL (6-20) 10/25/25 21:07 Creatinine 0.6 mg/dL (0.5-0.9) 10/25/25 21:07 GFR Calculation 105.8 mL/min (90-130) 10/25/25 21:07 Glucose 109 mg/dL (65-115) 10/25/25 21:07 Calculated Osmolality 291 mOsm/kg (285-295) 10/25/25 21:07 Calcium 9.5 mg/dL (8.5-10.5) 10/25/25 21:07 Influenza A (PCR) Negative (Negative) 10/25/25 21:50 Influenza Type B (PCR) Negative (Negative) 10/25/25 21:50 RSV (PCR) Negative (Negative) 10/25/25 21:50 SARS-CoV-2 (PCR) Negative (Negative) 10/25/25 21:50 All radiology interpretation(s) finalized by discharge Discharge Plan Discharge Patient Disposition: Home Clinical Impression: Viral infection Condition: Stable Prescriptions: New methylprednisolone [Medrol (Miguel Angel)] 4 mg tablets,dose pack See Rx Instructions .ROUTE .COMPLEX Qty: 21 0RF Rx Instructions: orally per package directions albuterol sulfate 90 mcg/actuation HFA aerosol inhaler 2 inh INHALATION Q4H PRN (Reason: shortness of breath or wheezing) Qty: 18 0RF No Action buprenorphine-naloxone [Suboxone] 8-2 mg film 2 film buccal DAILY Rx Instructions: place 1 film on inside of (each) cheek amoxicillin 875 mg tablet 875 mg PO BID 10 Days Qty: 20 0RF albuterol sulfate [Ventolin HFA] 90 mcg/actuation HFA aerosol inhaler 2 puff inhalation Q6H PRN (Reason: shortness of breath or wheezing) Qty: 8.5 0RF aripiprazole [Abilify] 2 mg tablet 2 mg PO DAILY prednisone 10 mg tablet 10 mg PO DAILY 5 Days Qty: 5 0RF ibuprofen 800 mg tablet 800 mg PO Q8H PRN (Reason: pain) Qty: 20 0RF capsaicin 0.1 % cream 1 applic topical TID Qty: 56.6 0RF Rx Instructions: do not wash area for at least 30 min after application lisinopril 10 mg tablet 10 mg PO DAILY Qty: 90 0RF pantoprazole 40 mg tablet,delayed release (DR/EC) 40 mg PO DAILY Qty: 30 0RF csroiqakfz-uxwjfjskbckyh-wjod 50-325-40 mg tablet 1 tab PO Q6H PRN (Reason: headache) 7 Days Qty: 7 0RF ondansetron 8 mg tablet,disintegrating 8 mg PO DAILY PRN (Reason: Nausea) propranolol 10 mg tablet 10 mg PO BID Allergy Relief D-24hr 10-240 mg tablet extended release 24 hr 1 tab PO DAILY fluticasone propionate 50 mcg/actuation spray,suspension 1 spray intranasal DAILY PRN (Reason: allergies) Rx Instructions: administer into each nostril Discharge Orders: Discharge ED (Routine); Ordered 10/25/25 Ordered By: David Nair Patient Instructions: Opioid Safety, Pain Management, Patient Portal & Brody Instructions Activity Restrictions/Additional Instructions: Thank you for choosing [facility] for your healthcare needs today. It is very important that you follow up as instructed or that you return to the Emergency Department should you have concerns or if your condition changes or worsens in any way. Emergency department visits are focused on emergent conditions, in some cases you may require further evaluation on an outpatient basis. You are seen in the emergency room with complaint of cough congestion chest x-ray is normal test for flu COVID and RSV were also negative. Your white count was normal. Suspect this viral respiratory infection. (Please note that included in your discharge packet is information concerning opioid safety and pain management. This information is given to all patients were discharged from the ER regardless of their discharge diagnosis or the medicines they usually take or are prescribed.) Stand Alone Forms: Work/School Release Print Language: Kazakh Coding Level of Care Code ED Process Development Engineer for Allan Huertas
[2025-10-25 21:33] LABS: Anion Gap 14.0 (5-19); Blood Urea Nitrogen 15 mg/dL (6-20); Calcium 9.5 mg/dL (8.5-10.5); Carbon Dioxide 27 mmol/L (22-29); Chloride 103 mmol/L (98-107); Creatinine Clr Calc Pharmacy 121.6088; Glucose 109 mg/dL (65-115); Osmolality Calculated 291 mOsm/kg (285-295); Potassium 4.0 mmol/L (3.5-5.1); Sodium 140 mmol/L (136-145)
[2025-10-25 22:37] LABS: Respiratory Syncytial Virus Ce NEGATIVE (Negative); SARS-CoV-2 PCR NEGATIVE (Negative)
== END 2025-10-25 23:34 | disposition home or self-care (01) ==
PROVIDERS: Emergency Provider Family Medicine
DX: B34.9 Viral infection, unspecified (principal); Z11.52 Encounter for screening for COVID-19; Z72.0 Tobacco use; I10 Essential (primary) hypertension
CPT/HCPCS: 36415; 71045; 80048; 85025; 87637; 93005; 96374; 99285; J1885